=== PATIENT | female | born 1960 | race Caucasian/White ===

== ENCOUNTER 2018-02-15 11:43 | Outpatient (REF) | payer BC, SELFPAY | END 2018-02-15 12:03 | LOC: LBN 11:43 | PROVIDERS: PCP Internal Medicine; Visit Provider Nurse Practitioner Family | DX: N90.9 Noninflammatory disorder of vulva and perineum, unspecified (principal) | CPT/HCPCS: 87529 ==

== ENCOUNTER 2018-11-18 17:16 | Outpatient (REF) | payer BC, SELFPAY ==
--- NOTE | 2018-11-18 15:40 | PAPFT_PTH ---
PATIENT: Debbie Pedraza LOC: [facility] U#:[id number] AGE/SX: 58/F ROOM: RE11/18/[address]: Angelica Yap : 1960 BED: DIS: 11/18/2018 SPEC #: [id number] RECD: 11/18/18 18:00 STATUS: RU REGian #: [id number] SANAZ: 11/18/18 15:[address]: Angelica Yap DEPT: [facility] Cytology RECD BY: [place] Jay ENTERED: 11/18/18 18:00 SP TYPE: PAPFT OTHR DR: Roxana Rodriguez, PhD LEAD ESTHETICIAN Tissues: 1 - CX/ENDOCX FOR PAP SMEARS Procedures: PAP THIN PREP/UVM Screening HPV DNA PROBE Comments: [id number]
== END 2018-11-18 17:36 ==
LOC: LBN 17:16
PROVIDERS: PCP Nurse Practitioner; Visit Provider Obstetrics & Gynecology Gynecology
DX: Z12.4 Encounter for screening for malignant neoplasm of cervix (principal); Z11.51 Encounter for screening for human papillomavirus (HPV)
CPT/HCPCS: 88142; 87624

== ENCOUNTER 2018-12-20 01:04 | Outpatient (CLI) | payer BC, SELFPAY ==
--- NOTE | 2018-12-20 16:06 | DI.MAMMO_ITS ---
EXAM: MAMMO SCREENING CLINICAL HISTORY: screening Z12.39. TECHNIQUE: Mammograms were interpreted according to the usual protocol including computer analysis w ith CAD system, tomosynthesis and C-view imaging. COMPARISON: [id number] FINDINGS: The breasts are composed of scattered areas of fibroglandular density, breast density category B. Th ere are no suspicious masses or microcalcifications. There are no significant changes in comparison w ith the prior images. IMPRESSION: BI-RADS Cat 1 - Negative Breast Density - Category B - Scattered areas of fibroglandular density
== END 2018-12-20 01:24 ==
PROVIDERS: PCP Nurse Practitioner; Visit Provider Obstetrics & Gynecology Gynecology
DX: Z12.31 Encounter for screening mammogram for malignant neoplasm of breast (principal)
CPT/HCPCS: 77063; 77067

== ENCOUNTER 2019-01-31 10:37 | Outpatient (CLI) | payer BC, SELFPAY ==
--- NOTE | 2019-01-31 11:00 | DI.RAD_ITS ---
EXAM: XR WRIST LT COMPLETE INDICATION: left wrist injury,S69.92XA. COMPARISON: No exams were available for comparison TECHNIQUE: 2D digital imaging was performed. FINDINGS: There is a comminuted intra-articular fracture of the distal radius. There is a displaced fracture f ragment posteriorly. There is some impaction. The distal ulna and carpal bones appear intact. IMPRESSION: Comminuted intra-articular fracture of the distal radius.
== END 2019-01-31 10:57 ==
PROVIDERS: PCP Nurse Practitioner; Visit Provider Family Medicine
DX: S69.92XA Unspecified injury of left wrist, hand and finger(s), initial encounter (principal); S52.572A Other intraarticular fracture of lower end of left radius, initial encounter for closed fracture
CPT/HCPCS: 73110

== ENCOUNTER 2019-02-07 15:14 | Outpatient (CLI) | payer BC, SELFPAY ==
--- NOTE | 2019-02-07 15:06 | DI.RAD_ITS ---
EXAM: XR WRIST LT COMPLETE INDICATION: F/U FRACTURE. COMPARISON: XR WRIST LT COMPLETE from 01/31/2019 TECHNIQUE: 2D digital imaging was performed. FINDINGS: There has been no change in the alignment of the distal radial fracture. No new abnormalities are se en.
== END 2019-02-07 15:34 ==
PROVIDERS: PCP Nurse Practitioner; Visit Provider Student in an Organized Health Care Education/Training Program
DX: S52.572D Other intraarticular fracture of lower end of left radius, subsequent encounter for closed fracture with routine healing (principal)
CPT/HCPCS: 73110

== ENCOUNTER 2019-03-03 15:31 | Outpatient (CLI) | payer BC, SELFPAY ==
--- NOTE | 2019-03-03 15:40 | DI.RAD_ITS ---
EXAM: XR WRIST LT COMPLETE CLINICAL HISTORY: L distal radius fx TECHNIQUE: COMPARISON: XR WRIST LT COMPLETE from 02/07/2019 FINDINGS: Three views were obtained and show previously described fracture of the distal radius with no gross i nterval change in alignment of the fracture fragments comparison with previous examination of Prasanth moore. IMPRESSION:
== END 2019-03-03 15:51 ==
PROVIDERS: PCP Nurse Practitioner; Visit Provider Physician Assistant
DX: S52.572D Other intraarticular fracture of lower end of left radius, subsequent encounter for closed fracture with routine healing (principal)
CPT/HCPCS: 73110

== ENCOUNTER 2019-04-04 16:05 | Outpatient (CLI) | payer BC, SELFPAY ==
--- NOTE | 2019-04-04 15:13 | DI.RAD_ITS ---
EXAM: XR WRIST LT LIMITED CLINICAL HISTORY: f/u L wrist frx TECHNIQUE: COMPARISON: XR WRIST LT COMPLETE from 03/03/2019 FINDINGS: Two views were obtained and show previously described fracture of the distal radius with no gross int erval change in alignment of the fracture fragments comparison with previous examination of March 03. IMPRESSION:
== END 2019-04-04 16:25 ==
PROVIDERS: PCP Nurse Practitioner; Visit Provider Student in an Organized Health Care Education/Training Program
DX: S52.572D Other intraarticular fracture of lower end of left radius, subsequent encounter for closed fracture with routine healing (principal)
CPT/HCPCS: 73100

== ENCOUNTER 2019-09-23 03:14 | Outpatient (CLI) | payer BC, SELFPAY ==
[2019-09-23 09:28] LABS: Hemoglobin A1C 5.5 % (3.8-5.6)
[2019-09-23 10:02] LABS: Calculated LDL 91 mg/dL (<100); Cholesterol 161 mg/dL (<200); HDL Cholesterol 45 mg/dL (40-60); Triglyceride 129 mg/dL (<150)
== END 2019-09-23 03:34 ==
PROVIDERS: PCP Nurse Practitioner; Visit Provider Nurse Practitioner
DX: Z13.220 Encounter for screening for lipoid disorders (principal); Z13.1 Encounter for screening for diabetes mellitus
CPT/HCPCS: 36415; 80061; 83036

== ENCOUNTER 2020-01-11 02:42 | Outpatient (CLI) | payer BC, SELFPAY ==
--- NOTE | 2020-01-11 06:30 | DI.US_ITS ---
EXAM: US THYROID CLINICAL HISTORY: enlarged thyroid,nontoxic goiter,e04.9 TECHNIQUE: Ultrasound performed using standard protocol. COMPARISON: No exams were available for comparison FINDINGS: Thyroid ultrasound was performed according to the usual protocol. Right thyroid lobe measures 39 x 1 4 x 12 millimeters and left thyroid lobe measures 32 x 11 x 15 millimeters, the isthmus is about 3 mi llimeters in thickness. Thyroid parenchyma homogeneous. No significant mass identified. 3 millimeter nodule noted in lower pole left thyroid. IMPRESSION: Negative thyroid ultrasound. No imaging follow-up recommended. DATA REPOSITORY:
--- NOTE | 2020-01-11 07:30 | DI.MAMMO_ITS ---
EXAM: MAMMO SCREENING CLINICAL HISTORY: screening,z12.39 TECHNIQUE: Mammograms were interpreted according to the usual protocol including computer analysis w [employer] CAD system, tomosynthesis and C-view imaging. COMPARISON: FINDINGS: The breasts are of moderate density with fairly symmetrical distribution of fibroglandular tissue. N o dominant mass or clumped microcalcification is identified in either breast. Current examination is compared with previous examinations including December 2018 and there has been no gross interval alexandre ge in appearance in comparison with prior studies. IMPRESSION: No specific evidence of malignancy at this time. Routine screening examinations are suggested at yea rly intervals due to the family history of breast carcinoma. BI-RADS Category 1 - Negative Breast Density - Category B - Scattered areas of fibroglandular density
== END 2020-01-11 03:02 ==
PROVIDERS: PCP Nurse Practitioner; Visit Provider Nurse Practitioner
DX: Z12.31 Encounter for screening mammogram for malignant neoplasm of breast (principal); Z80.3 Family history of malignant neoplasm of breast; E04.9 Nontoxic goiter, unspecified
CPT/HCPCS: 77063; 77067; 76536

== ENCOUNTER 2020-06-04 02:10 | Outpatient (CLI) | payer BC, SELFPAY ==
--- NOTE | 2020-06-04 06:31 | DI.US_ITS ---
EXAM: US PELVIS TRANSVAGINAL CLINICAL HISTORY: Left sided abd pain, ? OVARIAN CYST, R10.9 TECHNIQUE: Ultrasound of the pelvis was performed both transabdominal and transvaginal. COMPARISON: US US THYROID from 01/11/2020 FINDINGS: UTERUS: Anteverted Measures 7 point cm length x 3.2 cm AP x 9 cm wide. There are no uterine fibroids. Endometrial thickness measures 6 mm. There is no fluid in the endometrial canal. CERVIX: There are multiple hyperechoic foci in the upper cervix seen on transvaginal imaging, probabl y small calcifications. There are no large nabothian cysts. RIGHT OVARY: Measures 2.7 x 1.6 x 1.4 cm No significant cysts nor masses evident in the right ovary. LEFT OVARY: Measures 4.2 x 3 2 x 2 point cm Left ovary contains a cyst measuring 3.6 x 2.2 x 3.6 cm. This appears unilocular with no septated th erein. Vascular flow is demonstrated in both ovaries. CUL-DE-SAC: No free fluid evident. IMPRESSION: 1. There is a 3.6 by 3.6 x 2.2 centimeter cyst in the left ovary. No other ovarian findings. 2. There are multiple hyperechoic foci in what is either the upper cervix or lower most uterus.. Pos sibly related to tiny nabothian cyst boyd versus is possibility of fibroid at this level. 3. No free fluid evident in the adnexal regions and cul-de-sac. DATA REPOSITORY:
== END 2020-06-04 02:30 ==
PROVIDERS: PCP Nurse Practitioner; Visit Provider Nurse Practitioner Family
DX: N83.292 Other ovarian cyst, left side (principal); N85.8 Other specified noninflammatory disorders of uterus
CPT/HCPCS: 76830; 76856

== ENCOUNTER 2020-11-13 18:37 | Outpatient (REF) | payer BC, SELFPAY ==
[2020-11-15 11:56] LABS: COVID-19 RT-PCR UVMMC Result Negative (Negative)
== END 2020-11-13 18:38 | disposition home or self-care (01) ==
LOC: LBN 18:37
PROVIDERS: PCP Nurse Practitioner; Visit Provider Nurse Practitioner Family
DX: Z20.822 Contact with and (suspected) exposure to COVID-19 (principal); R05 Cough
CPT/HCPCS: U0003

== ENCOUNTER 2021-01-16 01:00 | Outpatient (CLI) | payer BC, SELFPAY ==
--- NOTE | 2021-01-16 07:30 | DI.MAMMO_ITS ---
Exam(s) MAMMO SCREENING EXAM: MAMMO SCREENING CLINICAL HISTORY: screening,Z12.39. TECHNIQUE: Bilateral full field digital CC and MLO mammographic images were obtained with 3D tomosyn thesis and utilizing computer aided detection (CAD). COMPARISON: Prior mammograms dating back to 2013, the most recent being December 2019. FINDINGS: There has been no significant change in the appearance and distribution of fibroglandular tissue smal l nodular density in the upper-outer quadrant left breast is unchanged from prior studies and probabl y benign lymph node. There are no CAD designations There are no new spiculated masses nor malignant appearing microcalcification groups. There is no significant architectural distortion nor skin thickening-retraction. IMPRESSION: No radiographic evidence of malignancy. BI-RADS Category 1 - Negative Breast Density - Category B - Scattered areas of fibroglandular density Breast density Category C or D implies that the patient has dense breast tissue. Dense breast tissue can make it harder to find cancer on a mammogram. Dense breast tissue is also associated with an incr eased risk of breast cancer. This information about the result of the mammogram report was provided to the patient to raise their awareness. Use this report when you speak with the patient about their risks for breast cancer, which includes their family history. At that time, you may recommend additional screening tests (Ultrasoun d or MRI) as these tests may add significant information. A negative radiographic report should not delay biopsy if a dominant or clinically suspicious mass is present. Up to ten percent of cancers are not identified on mammography. A negative report may reinforce clinical impression. Adenosis and dense breasts may obscure an underlying neoplasm. False positive reports average 6 to 10%. Patient will receive a letter notifying them of these results.
== END 2021-01-16 01:20 ==
PROVIDERS: PCP Nurse Practitioner; Visit Provider Nurse Practitioner
DX: Z12.31 Encounter for screening mammogram for malignant neoplasm of breast (principal)
CPT/HCPCS: 77063; 77067

== ENCOUNTER 2021-05-20 16:01 | Outpatient (REF) | payer BC, SELFPAY ==
--- NOTE | 2021-05-20 15:45 | PAPFT_PTH ---
PATIENT: Debbie Pedraza LOC: [facility] U#:[id number] AGE/SX: 61/F ROOM: RE05/20/[address]: Angelica Yap : 1960 BED: DIS: 05/20/2021 SPEC #: [id number] RECD: 05/20/21 17:45 STATUS: RU REGian #: [id number] SANAZ: 05/20/21 15:[address]: Angelica Yap DEPT: [facility] Cytology RECD BY: Argentina Jay ENTERED: 05/20/21 17:46 SP TYPE: PAPFT OTHR DR: Roxana Rodriguez, PhD [place] ATTENDANT Tissues: 1 - CX/ENDOCX FOR PAP SMEARS Procedures: PAP THIN PREP/UVM Screening HPV DNA PROBE Comments: [id number]
== END 2021-05-20 16:02 | disposition home or self-care (01) ==
LOC: LBN 16:01
PROVIDERS: PCP Nurse Practitioner; Visit Provider Obstetrics & Gynecology Gynecology
DX: Z12.4 Encounter for screening for malignant neoplasm of cervix (principal); Z11.51 Encounter for screening for human papillomavirus (HPV)
CPT/HCPCS: 88142; 87624

== ENCOUNTER 2021-07-30 02:23 | Outpatient (CLI) | payer BC, SELFPAY ==
[2021-07-30 16:40] LABS: HCT 42.5 % (36.0-46.0); HGB 14.5 g/dL (11.2-15.7); MCH 33.3 pg (27.0-33.0); MCHC 34.1 % (32.0-36.0); MCV 98 fL (80-95); MPV 8.6 fL (8.0-11.0); Platelet Count 202 10^3/uL (130-400); RBC 4.35 10^6/uL (3.93-5.22); RDW 11.6 % (11.7-14.6); WBC 7.55 10^3/uL (4.4-10.8)
[2021-07-30 18:35] LABS: TSH (W/Ref FT4) 3.76 uIU/mL (0.36-3.74)
[2021-07-30 19:01] LABS: FREE T4 0.81 ng/dL (0.76-1.46)
== END 2021-07-30 02:24 | disposition home or self-care (01) ==
LOC: LBO 02:23
PROVIDERS: PCP Nurse Practitioner; Visit Provider Nurse Practitioner
DX: E04.9 Nontoxic goiter, unspecified (principal); R53.83 Other fatigue
CPT/HCPCS: 36415; 85027; 84439; 84443

== ENCOUNTER → 2021-10-10 01:52 | Outpatient (CLI) | payer BC, SELFPAY ==
--- NOTE | 2021-10-10 09:57 | DI.RAD_ITS ---
Exam(s) XR HIP PELVIS ADULT BL EXAM: XR HIP PELVIS ADULT BL CLINICAL HISTORY: worsening hip back pain, LUMBAGO, KENNA HIP PAIN, M54.50, M25.551, M25.552. TECHNIQUE: 2D digital imaging was performed of the pelvis and bilateral hips. Three images were obt ained. AP pelvis and lateral views of both hips were obtained. COMPARISON: No exams were available for comparison FINDINGS: BONES: No acute fracture is present. No bony destructive lesion is seen. JOINTS: No dislocation present. SOFT TISSUE: Normal. IMPRESSION: Unrmarkable radiographs of bilat hips. Unremarkable radiographs of the pelvis DATA REPOSITORY: RADIATION DOSE DELIVERED:
== END ==
PROVIDERS: PCP Nurse Practitioner; Visit Provider Nurse Practitioner
DX: M25.551 Pain in right hip (principal); M25.552 Pain in left hip; M54.50 Low back pain, unspecified
CPT/HCPCS: 73521

== ENCOUNTER 2022-01-22 03:37 | Outpatient (CLI) | payer BC, SELFPAY ==
[2022-01-22 15:27] LABS: HCT 41.7 % (36.0-46.0); HGB 14.2 g/dL (11.2-15.7); MCH 33.1 pg (27.0-33.0); MCHC 34.1 % (32.0-36.0); MCV 97 fL (80-95); MPV 8.5 fL (8.0-11.0); Platelet Count 199 10^3/uL (130-400); RBC 4.29 10^6/uL (3.93-5.22); RDW 11.4 % (11.7-14.6); RDW-SD 41.1 fL; WBC 7.43 10^3/uL (4.4-10.8)
[2022-01-22 15:30] LABS: ESR 5 mm/hr (0-30)
[2022-01-22 16:16] LABS: Anion Gap 5.9 mmol/L (3-11); BUN 16 mg/dL (7-18); CO2 33.1 mmol/L (21.0-32.0); CREATININE 0.8 mg/dL (0.55-1.02); Calcium 9.3 mg/dL (8.5-10.1); Chloride 105 mmol/L (98-107); Estimated GFR 84.82 (mL/min/1.73m2); FREE T4 0.87 ng/dL (0.76-1.46); Glucose 91 mg/dL (74-106); Potassium 3.9 mmol/L (3.5-5.1); Sodium 144 mmol/L (136-145)
[2022-01-22 16:38] LABS: Calculated LDL 98 mg/dL (<100); Cholesterol 173 mg/dL (<200); HDL Cholesterol 51 mg/dL (40-60); Triglyceride 121 mg/dL (<150)
[2022-01-22 17:04] LABS: Folate 16.1 ng/mL (8.6-20.0); Vitamin B12 430 pg/mL (193-986)
[2022-01-23 08:57] LABS: Cyclic Citrullinated Peptide <2.5 U/mL (<5.0)
[2022-01-23 14:01] LABS: ANA Interpretation Negative (Negative)
== END 2022-01-22 03:38 | disposition home or self-care (01) ==
LOC: LBO 03:37
PROVIDERS: PCP Nurse Practitioner Family; Visit Provider Nurse Practitioner Family
DX: I10 Essential (primary) hypertension (principal); E04.9 Nontoxic goiter, unspecified; M25.50 Pain in unspecified joint; R53.83 Other fatigue; D75.89 Other specified diseases of blood and blood-forming organs
CPT/HCPCS: 36415; 80048; 80061; 85027; 85652; 86200; 82607; 82746; 84439; 84443; 86038; 86140

== ENCOUNTER → 2022-02-07 00:11 | Outpatient (CLI) | payer BC, SELFPAY ==
--- OUTSIDE RECORDS SUMMARY | 2022-02-07 00:12 | XMS_ITS | Encounter Summary ---
:1960 Author Organization [facility] [place] [address] Care Team Providers Name Role Phone Jose David Gonsales MD Primary Care Provider Encounter Details Date Type Department Care Team Description 09/18/2015 Telephone Sleep Center at [facility] Linda Jansen MD [address] [facility] [place] [address] [facility] [phone] [place] [id number] (Wo rk) Social History Tobacco Use Types Packs/Day Years Used Date Smoking Tobacco: Never Assessed Sex Assigned at Date Recorded Not on file documented as of this encounter Miscellaneous Notes Telephone Encounter - Krystyna Vences - 09/20/2015 10:59 AM EDT . documented in this encounter Plan of Treatment Not on filedocumented as of this encounter Visit Diagnoses Not on filedocumented in this encounter Care Teams Trailers [employer] Salesperson Relationship Specialty Start Date End Date Jose David Gonsales MD PCP - General General Internal Medicine 04/23/15 [address] [place] [address] documented as of this encounter
--- OUTSIDE RECORDS SUMMARY | 2022-02-07 00:12 | XMS_ITS | Encounter Summary ---
:1960 Author Organization [place] [address] Care Team Providers Name Role Phone Jose David Gonsales MD Primary Care Provider Encounter Details Date Type Department Care Team Description 09/18/2015 Telephone Sleep Center at [facility] Linda Jansen MD [address] [facility] [place] [address] [facility] [phone] [place] [address] (Wo rk) Social History Tobacco Use Types Packs/Day Years Used Date Smoking Tobacco: Never Assessed Sex Assigned at Date Recorded Not on file documented as of this encounter Miscellaneous Notes Telephone Encounter - Krystyna Vences - 09/20/2015 11:00 AM EDT . documented in this encounter Plan of Treatment Not on filedocumented as of this encounter Visit Diagnoses Not on filedocumented in this encounter Care Teams Inhalation Therapy Teacher Relationship Specialty Start Date End Date Jose David Gonsales MD PCP - General General Internal Medicine 04/23/15 [address] [place] [address] documented as of this encounter
--- OUTSIDE RECORDS SUMMARY | 2022-02-07 00:12 | XMS_ITS | Encounter Summary ---
:1960 Author Organization [facility] [place] [address] Care Team Providers Name Role Phone Jose David Gonsales MD Primary Care Provider Encounter Details Date Type Department Care Team Description 11/26/2015 Notes Only Sleep Center at [facility] Babar Steven [address] [place] [address] Social History Tobacco Use Types Packs/Day Years Used Date Smoking Tobacco: Never Assessed Sex Assigned at Date Recorded Not on file documented as of this encounter Progress Notes Babar Steven - 11/26/2015 11:15 AM EDT Called patient and left voicemail. Due for a follow up appt with NOREEN in december documented in this encounter Plan of Treatment Not on filedocumented as of this encounter Visit Diagnoses Not on filedocumented in this encounter Care Teams Community Outreach Manager Relationship Specialty Start Date End Date Jose David Gonsales MD PCP - General General Internal Medicine 04/23/15 [address] [place] [address] documented as of this encounter
--- OUTSIDE RECORDS SUMMARY | 2022-02-07 00:12 | XMS_ITS | Encounter Summary ---
:1960 Author Organization [facility] [place] [address] Care Team Providers Name Role Phone Jose David Gonsales MD Primary Care Provider Encounter Details Date Type Department Care Team Description 08/28/2015 Office Visit Dermatology at [facility] ([place], [place]) Rohit Garrett MD Lichen simplex [address] Sergey [address] [place] [address] [place] [address] [phone] (Wo rk) Social History Tobacco Use Types Packs/Day Years Used Date Smoking Tobacco: Never Assessed Sex Assigned at Date Recorded Not on file documented as of this encounter Progress Notes Rohit Garrett MD - 08/28/2015 1:16 PM EDT Problem: Itchy rash, left posterior calf, left ankle. Debbie is a 55-year-old woman who last summer had what she thought was a bite on the back of her calf, and she developed an itchy rash there. She was seen by Dr. Gonsales who gave her fluocinonide cream. This seemed to help that site, but then the patient also noted that she had an itchy rash on her left dorsal foot. Her mother has a history of lupus and scleroderma, and the patient wanted to be seen by a carbon capture power plant operator to be sure that she was not developing that same problem. The fluocinonide, which has worked well for the posterior calf side on the left, did not really do much for the dorsum of the foot, and so she presents today for my evaluation. The patient is seen in consultation for Jose David Gonsales. Physical examination reveals eczematized lichenoid patches on the dorsum of the foot, really now cleared from the left posterior calf. It is consistent with lichen simplex. There is evidence of recent excoriation here. Assessment and Plan: Lichen simplex. a. Recommend that we begin clobetasol ointment, applying on a b.i.d. basis to affected areas; 15 grams dispensed with one refill. b. After evening application, wrap with saran wrap to aid in absorption. c. Continue until rash clears, and then discontinue. e. Patient reassured this is not consistent with lupus nor with scleroderma. It is not consistent with skin cancer. Expect resolution with clobetasol. Return to clinic here p.r.n. COPY: Jose David Gonsales M.D. documented in this encounter Plan of Treatment Not on filedocumented as of this encounter Visit Diagnoses Diagnosis Lichen simplex Lichenification and lichen simplex chron icus documented in this encounter Care Teams Marketing Development Representative Relationship Specialty Start Date End Date Jose David Gonsales MD PCP - General General Internal Medicine 04/23/15 [address] [place] [address] documented as of this encounter
--- OUTSIDE RECORDS SUMMARY | 2022-02-07 00:12 | XMS_ITS | Encounter Summary ---
:1960 Author Organization [facility] [place] [address] Care Team Providers Name Role Phone Shaina Jordan MD Primary Care Provider Reason for Referral Consultation (Routine) - Closed Specialty Diagnoses / Procedures Referred By Contact Refer red To Contact Sleep Center Diagnoses CAS (obstructive sleep apnea) Linda Jansen MD [facility] Sleep Medicine [facility] [address] [place] [address] [place] [address] Referral ID Status Reason Start Date Expiration Date Visits V isits Requested Authorized [id number] Closed Test Only 09/04/2015 09/03/2016 1 1 Encounter Details Date Type Department Care Team Description 09/04/2015 Office Visit Sleep Center at Linda Jansen MD CAS (obstructive [address] [facility] sleep apnea) [address] [place], [place] SLEEP [facility]ORDERS [address] CENTER [phone] [place], [place] [address] (Wo rk) Social History Tobacco Use Types Packs/Day Years Used Date Smoking Tobacco: Never Assessed Sex Assigned at Date Recorded Not on file documented as of this encounter Last Filed Vital Signs Vital Sign Reading Time Taken Comments Blood Pressure 140/90 09/04/2015 12:48 PM EDT Pulse 82 09/04/2015 12:48 PM EDT Temperature - - Respiratory Rate - - Oxygen Saturation 98% 09/04/2015 12:48 PM EDT Inhaled Oxygen Concentration - - Weight 77.9 kg (171 lb 11.2 oz) 09/04/2015 12:48 PM EDT Height 167.6 cm (5' 6) 09/04/2015 12:48 PM EDT Body Mass Index 27.71 09/04/2015 12:48 PM EDT documented in this encounter Progress Notes Linda Jansen MD - 09/04/2015 12:39 PM EDT Sleep Medicine Consultation Note HPI: Ms. Debbie Pedraza is a 55 y.o. female seen at the request of SHAINA JORDAN MD for advice regarding suspected obstructive sleep apnea. She previously underwent testing at [facility] in 1999. Diagnosis of mild sleep apnea, ordered oral mandibular advancement device - was hard to clean, not clear benefit. used to note apneas, but now not as often. However, snoring is definitely consistent and worse than previously. Last year, spent the night with a colleague and they couldn't sleep at all. also is a light sleeper and needs to leave the room. In addition, sleep is not good quality - tired every day. Just recently started drinking coffee again. Sleep Apnea Risk: Snoring: yes Severity: can be loud, typically more moderate Frequency: nightly Duration: 20 + years Over time: getting worse Modifying factors: tried various things - not obvious benefit Observed Apneas: yes, more apparent in the past Mouth Breathing: yes Dry Mouth: yes Nocturnal Gasping: yes Nasal Obstruction: yes Weight: gaining (lost 10 lbs over winter and gained it bck) Sleep Pattern: Location: bedroom Bed/Recliner/Wedge: bed # of pillows under head: 1 or none, Position: sleeps on stomach usually, but may end up in other positions as per her Bedtime: 10:30 - 11, tends to go to bed late, falls asleep instantly Awakenings: she is not aware Out of bed at 6:15 am Daytime Symptoms: [place]: 724 Upon Awakening: tired Daytime fatigue/sleepiness: usually can keep busy, but feels tired Naps: if can get home right after school, will nap Involuntary Dozing: maybe watching TV, rare Cognitive Symptoms: sometimes Driving: only if late at night, but generally doesn't do Close calls related to sleepiness: no Accidents related to sleepiness: no Sleep Review of Symptoms Parasomnias: Sleep Walking: no Dream Enactment: no Bruxism: not aware Motor: RLS: no PLMS: not asked Narcolepsy: Hallucinations: no Paralysis: no Cataplexy: not asked ROS: CON: weight change: see HPI ENT: nasal obstruction: see HPI NEURO: sleep related headaches: no CV: chest pain: no Palpitations: yes LE edema: yes PUL: TORRES: somewhat PSY: Depression: no Anxiety: yes, sometimes GI: GERD: no : Nocturia: not daily MSK: Pain: periodic back pain ALL: Environmental Allergies: maybe Past/Childhood Sleep History: snored for many years Family History: Family history of sleep disorders: Dad snored very loudly, uncle with CAS was on CPAP Outpatient Prescriptions Marked as Taking for the 09/04/15 encounter (Office Visit) with Bonnie Jansen MD Medication Sig Dispense Refill ??? clobetasol (TEMOVATE) 0.05 % Ointment Apply topically 2 times daily. ??? multivitamin with minerals and lutein Tablet Take by mouth daily. ??? magnesium citrate Solution Take by mouth. ??? ascorbic acid, vitamin C, (VITAMIN C) 500 mg Tablet, Chewable Take by mouth. ??? fish oil-omega-3 fatty acids 1,000 mg Capsule Take 2 g by mouth daily. Keeps Past Medical History: Borderline hypertension, not taking any meds yet Essential tremor Eczema Sacroilliac dysfunction Past Surgical History: no Patient Active Problem List Diagnosis Code ??? 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 Alcohol: 3 x a week, maybe a bit more on weekend Smoking: no, quit at age 32 Caffeine: coffee 1-2 cups Family: lives with , son 18 yr MSE: Alert and appropriate: yes PE: BP 140/90 Pulse 82 Ht 167.6 cm (5' 6) Wt 77.9 kg (171 lb 11.2 oz) SpO2 98% BMI 27.71 kg/m2 General: alert, pleasant, no distress Eyes: Conjunctivae: clear EOM: full ENT: MP: 4 Facial deformity: no Hard palate: normal Soft palate: normal Gums and teeth: good condition Tongue: large for space with scalloped edges Pul: Respirations: NAD Auscultation: clear Neck/Lymphatics: Circumference: 14.5 (normal) Cardiac: HS: RRR Neuro: alert, normal speech Musculoskeletal: Gait and stance: normal Assessment: Ms. Debbie Pedraza is a 55 y.o. female who is seen to evaluate for possible obstructive sleep apnea. She carries a diagnosis of mild CAS from 16 yrs ago, but since that time her symptoms have progressed. She has worse snoring, poor quality sleep with daytime symptoms, and elevated BP. The pathophysiology of, the reasons to treat and treatment options for obstructive sleep apnea were allreviewed with the patient today. She is agreeable to proceed to testing. She currently is off gridand we discussed some of the aspects of power for CPAP. Ultimately, discussion with a home care company may be needed to help flush out those issues. Time spent face to face: 50 min Time spent devoted to counseling and discussion: 25 min Recommendations: 1) Polysomnography 2) Driving safety was reviewed with patient. If the patient feels too sleepy to drive he/she knows not to drive. If he/she becomes sleepy while driving he/she will machine tack puller and nap. The patient indicates understanding of these issues and agrees with the plan. Linda Jansen MD Patient confirms that study results can be called to [phone] and a detailed phone message left if not available to answer. documented in this encounter Plan of Treatment Scheduled Referrals Name Type Priority Associated Diagnoses Order S chedule Referral to Sleep Outpatient Referral Routine CAS (obstructive Ordered: [facility] Center sleep apnea) 09/04/2015 documented as of this encounter Visit Diagnoses Diagnosis CAS (obstructive sleep apnea) Obstructive sleep apnea (adult) (pediatr ic) documented in this encounter Care Teams Telephone Ad Taker Relationship Specialty Start Date End Date Shaina Jordan MD PCP - General General Internal Medicine 04/23/15 [address] [place] [address] documented as of this encounter
--- OUTSIDE RECORDS SUMMARY | 2022-02-07 00:12 | XMS_ITS | Encounter Summary ---
:1960 Author Organization [facility] [place] [address] Care Team Providers Name Role Phone Jose David Gonsales MD Primary Care Provider Encounter Details Date Type Department Care Team Description 09/25/2015 Procedure visit Sleep Center at Linda Jansen MD CAS ([facility] sleep apnea) [address] [place] SLEEP DISORDERS [id number] CENTER [phone] [place], [place] [address] Social History Tobacco Use Types Packs/Day Years Used Date Smoking Tobacco: Never Assessed Sex Assigned at Date Recorded Not on file documented as of this encounter Progress Notes Linda Jnasen MD - 09/25/2015 7:30 PM EDT Images from the original note were not included. Overnight Polysomnogram Report History Of Present Illness: Debbie Pedraza is a 55 yo female who presents for overnight testing due to suspicion of CAS. 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 Polysomnography: The patient's sleep was evaluated for one night at [facility]. Sleep was monitored in accordance with recommended AASM guidelines. The recording also included oral/nasal airflow, chest and abdominal respiratory effort, nasal pressure, single channel EKG, intercostal EMG, bilateral tibialis EMG, and oxygen saturation (by pulse oximeter). Report - Sleep/EEG: Baseline respiratory monitoring was performed from 21:57 to 6:18 yielding a total sleeptime of 425 min with a sleep onset latency of 14.5 min with a sleep efficiency of 85%. All stages ofsleep were seen with REM accounting for 25% of TST. - Respiratory: Obstructive sleep apnea of a mild to moderate degree with well maintained oxygen saturations of 91 % or above. The overall AHI was 19/hr with a CMS AHI of 0.8/hr.Visual to loud snoring was observed. - EKG: Normal sinus rhythm. - EMG: Unremarkable. - COMMENTS: Head of bed: flat with 2 pillows Post study questionnaire: The patient reported sleeping average and feeling average on the morning after testing. Technical quality of the study: good Assessment: Debbie Pedraza is a 55 you female who presents for overnight testing which demonstrates evidence moderate CAS with associated intermittent loud snoring. Given the findings and her reported symptoms, treatment is recommended. Treatment options include CPAP therapy, an oral appliance or pancho gical options (least favored.) CPAP is the recommended first line treatment strategy and if she is agreeable, than a CPAP titration is recommended. I spoke to Debbie - she reports understanding and is willing to proceed with CPAP testing. Recommendations: CPAP titration Linda Jansen MD [facility] REPORT of Diagnostic Polysomnography Patient Name: Debbie Pedraza Study Date: 09/25/2015 Age & Sex: 55 y.o. Female Height: 5'6 Date of : 1960 Weight: 169 lbs BMI: 27.3 Referring Provider: Recording Technologist: DEBBIE MONTANEZ Scoring Technologist: SHANIKA ZAVALA Sleep Fellow: Sleep Specialist: Scoring Technologist Comments: ECG: NSR Ectopy: Description of Study: Diagnostic polysomnography was performed utilizing frontal, central & occipital EEG, EOG, submentalis EMG, oronasal thermocouple, nasal pressure, ECG, thoracic and abdominal inductance plethysmography, right and left anterior tibialis EMG, snore sensor, and pulse oximetry according to AASM established guidelines. Study Details & Sleep Architecture Diagnostic Start Time (Lights Off): 21:57:24 Total Recording Time: 501.0 min Diagnostic End Time (Lights On): 06:18:25 Total Sleep Time (minutes): 425.0 Total Num. of Stage Shifts: 113 Total Sleep Time (hrs:min): 7:5.0 Total Num. of Awakenings: 37 Sleep Onset Latency: 14.5 min Total Num. of Trans. to N1: 14 Sleep Efficiency: 84.8% Total Num. of REM Periods: 5 Stage Results: Time (minutes) %TST Latency (minutes) WASO: 61.5 - - N1: 12.0 2.8 0.0 N2: 218.5 51.4 4.0 N3: 87.5 20.6 17.0 REM: 107.0 25.2 99.5 90.0 (minus wake) Arousal Counts: NREM REM Total Spontaneous: 94 (17.7/hr) 26 (14.6/hr) 120 (16.9/hr) Sum of All Arousals: 166 (31.3/hr) 50 (28.0/hr) 216 (30.5/hr) Spontaneous arousals include only EEG arousals not associated with a respiratory event or PLM. Body Position: Supine Non-Supine Non-REM: 105.5 min 212.5 min REM: 35.5 min 71.5 min Total Sleep: 141.0 min (33.2%) 284.0 min (66.8%) Respiratory Events Apneas Obstructive Mixed Central Total Apneas Total Count: 0 0 1 1 Mean Duration (sec): 0 0 18 - Longest Duration (sec): 0 0 18.3 - Index (REM/NREM): 0.0 / 0.0 0.0 / 0.0 0.0 / 0.2 - Index (Sup./Non-Sup.): 0.0 / 0.0 0.0 / 0.0 0.4 / 0.0 - Index (Total): 0.0 0.0 0.1 0.1 Hypopneas & RERAs Hypopnea Definitions: Hypopnea* CMS Hypopnea 3% desat mitch. Hypopneas All RERA Total Count: 5 126 131 0 Mean Duration (sec): 35.2 28.4 - 0 Longest Duration (sec): 45.4 76.8 - 0 Index (REM/NREM): 2.2 / 0.2 17.9 / 17.7 20.1 / 17.9 0.0 / 0.0 Index (Sup./Non-Sup.): 0.9 / 0.6 16.6 / 18.4 17.5 / 19.0 0.0 / 0.0 Index (Total): 0.7 17.8 18.5 0.0 *[facility]-defined hypopneas include only hypopneas with a >=4% oxygen desaturation. Includes hypopneas with an arousal or with a 3%-4% desaturation. [facility] Hypopneas not included. Periodic Breathing Total Sleep Time Time (minutes) 0.0 Time (%Sleep Time) 0.0 AHI: Includes all apneas & all hypopneas associated with an arousal or a ? 3% desaturation. Supine Non-Sup. REM NREM Total Count: 42 90 36 96 132 Index (events/hr): 17.9 19.0 20.2 18.1 AHI = 18.6 CMS AHI: Includes all apneas & only hypopneas associated with a ? 4% desaturation. Supine Non-Sup. REM NREM Total Count: 3 3 4 2 6 Index (events/hr): 1.3 0.6 2.2 0.4 CMS = 0.8 Obstructive AHI: Includes obstructive & mixed apneas as well as all hypopneas. Excludes central apneas and RERAs. Supine Non-Sup. REM NREM Total Count: 41 90 36 95 131 Index (events/hr): 17.4 19.0 20.2 17.9 OAHI = 18.5 RDI: Includes all apneas, all hypopneas, all RERAs, and all ???Unsure??? events. Supine Non-Sup. REM NREM Total Count: 42 90 36.0 95.9 132 Index (events/hr): 17.9 19.0 20.2 18.1 RDI = 18.6 Oxygen Saturation Details SpO2 Awake NREM REM All Sleep MATILDE Report Sleep Mean: 96% 96% 96% 96% 3% MATILDE 3.2 2.8 Minimum: - 91% 91% 91% 4% MATILDE 0.8 0.7 SpO2 Awake (minutes) NREM (minutes) REM (minutes) All Sleep (minutes) ?90% 0.0 0.0 0.0 0.0 ?89% 0.0 0.0 0.0 0.0 ?88% 0.0 0.0 0.0 0.0 90-99% 72.1 313.8 107.0 420.8 80-89.9% 0.0 0.0 0.0 0.0 79-79.9% 0.0 0.0 0.0 0.0 60-69.9% 0.0 0.0 0.0 0.0 50-59.9% 0.0 0.0 0.0 0.0 ?50% 0.0 0.0 0.0 0.0 Cardiac Details Heart Rate (bpm) Total Study NREM REM All Sleep Minimum - 62 62 62 Maximum 88 88 88 88 Mean - 73 71 72 Limb Movement Details Periodic Limb Movements Total PLMs (and Index) PLMs w/ Arousals (and Index) Wake (after ???Lights Off???): 0 (0.0/hr) 0 (0.0/hr) NREM: 0 (0.0/hr) 0 (0.0/hr) REM: 0 (0.0/hr) 0 (0.0/hr) Total Sleep: 0 (0.0/hr) 0 (0.0/hr) Graphs PLMs Body Position Supplemental Oxygen documented in this encounter Plan of Treatment Not on filedocumented as of this encounter Visit Diagnoses Diagnosis CAS (obstructive sleep apnea) Obstructive sleep apnea (adult) (pediatr ic) documented in this encounter Care Teams Sedimentationist Relationship Specialty Start Date End Date Jose David Gonsales MD PCP - General General Internal Medicine 04/23/15 [address] [place] [address] documented as of this encounter
--- OUTSIDE RECORDS SUMMARY | 2022-02-07 00:12 | XMS_ITS | Encounter Summary ---
:1960 Author Organization [facility] Address [address] [place] [address] Care Team Providers Name Role Phone Shirin Menard MD Primary Care Provider Reason for Visit Reason Comments Obstructive Sleep Apnea Encounter Details Date Type Department Care Team Description 05/12/2016 Office Visit Sleep Center at [facility] Chito Jurado CRTT CAS on CPAP [facility] [address] [place] [address] Social History Tobacco Use Types Packs/Day Years Used Date Smoking Tobacco: Never Assessed Sex Assigned at Date Recorded Not on file documented as of this encounter Progress Notes Jolene Jurado CRTT - 05/12/2016 1:00 PM EST Sleep Medicine Clinical Health Specialist Brief Follow-Up Note HPI: Ms. Debbie Pedraza is a 56 y.o. female seen for follow-up of obstructive sleep apnea. Patientpresents today for follow-up in PAP clinic: Sleep Study: PSG 09/25/15 Obstructive sleep apnea of a mild to moderate degree with well maintained oxygen saturations of 91 %or above. The overall AHI was 19/hr with a CMS AHI of 0.8/hr.Visual to loud snoring was observed. Weight: 169lbs ?? Titration 10/24/15, Wt: 171lbs AUTO CPAP 7 - 14 with a Dreamwear nasal mask or mask of her preference. ?? Treatment: CPAP Device: DreamStation Auto CPAP Pressure: 7-16cw Pressure Intolerance: ok Interface/Mask: Has DreamWear nasal mask Difficulty tolerating mask interface: none Chin Strap: no Humidity on? (ask if ResMed device): she thinks so HCC: [facility], [place], [place] Insurance: [place] ? Snoring: has told her no Dry Mouth/Throat: Yes, using biotene spray ?? Symptoms Improved: [place]: 10 (11 previous) Nocturnal sleep quality improved: better Daytime symptoms improved: no change Naps: once/week in the afternoon for 20 min Involuntary Dozing: rarely Sleepiness or Drowsiness when driving: no ?? Sleep Pattern: Bedtime: 10:30-11p, falls asleep quickly Rise time: 6:15am Awakenings: may once/night ? ROS: Constitutional: Weight change: Reports stable ENT: Nasal Obstruction: Some sneezing (She does not use heated humidity at this time-cool passover) ?? Card Data Download: Date Range: 11/06/15-02/03/16 (she didn't pick it up until November 08) Pressure: 7-14cw 90% 12.3 Avg 9.8 Residual AHI: 4.5 Avg Vibratory Snore Index: 3.1 Avg % Night in Large Leak: 0.2% Average Usage (Days Used/Hours): 7 hrs 17 mins # Days of usage: 85/90 % Days used > 4 hours: 7 hours 17 mins ? Compliance Card Data: Date Range: 02/11-05/11/16 Sett[place]-16 cm 90% 12 cm/average 9.5 cm Residual AHI: 3.6 Vibratory Snore Index: 3 % Night in Large Leak: 0 Average usage all days-Hours: 6 hr 42 min # Days of usage: 85/90 % Days used > 4 hours 90% Total % Days used 94.4% Physical Exam: Respirations: Even and not labored at rest DERM: Skin irritation: no There were no vitals filed for this visit. Assessment Debbie Pedraza is a 56 y.o. female seen for obstructive sleep. The data download reveals the AHI, VSI and leak appear to be adequately controlled. There is a low volume leak at times that appears to be some mouth breathing. Patient uses a nasal mask w/o a chin strap and keeps her HH on off-uses it as a cool passover. We discussed trying a chin strap and reviewed symptoms of dry mouth andnose w/o hh. Otherwise she is doing very well and reports continued modest benefit with her rest andenergy. EDS symptoms have not been a problem for her to begin with. RTC in one year with Lucy Time spent face to face: 30 Min. Recomendations: 1) CPAP 7-16 cm with ramp and Heated Humidity 2) Follow-up: RTC one year with Lucy 3) Driving safety discussed, recommend patient not drive if drowsy, if drowsy while driving to assembler for puller over machine and take a nap. The patient indicates understanding of these issues and agrees with the plan. Linda Jansen MD - 05/12/2016 1:00 PM EST I have reviewed Tuyet Jurado CRT's note for Ms. Debbie Pedraza and agree with the assessment and recommendations. LINDA JANSEN MD Linda Jansen MD - 05/12/2016 1:00 PM EST I have reviewed Tuyet Jurado SUPER[employer]OR [employer]'s note for Ms. Debbie Pedraza and agree with the assessment and recommendations. LINDA JANSEN MD documented in this encounter Plan of Treatment Not on filedocumented as of this encounter Visit Diagnoses Diagnosis CAS on CPAP Obstructive sleep apnea (adult) (pediatr ic) documented in this encounter Care Teams Rubber Mold Maker Relationship Specialty Start Date End Date Shirin Menard MD PCP - General Oncology 02/04/[address] [place] [id number] documented as of this encounter
--- OUTSIDE RECORDS SUMMARY | 2022-02-07 00:12 | XMS_ITS | Encounter Summary ---
:1960 Author Organization [facility] [place] [address] Care Team Providers Name Role Phone Jose David Gonsales MD Primary Care Provider Reason for Referral Consultation (Routine) - Closed Specialty Diagnoses / Procedures Referred By Contact Refer red To Contact Sleep Center Diagnoses CAS (obstructive sleep apnea) Linda Jansen MD [facility] Sleep Medicine Procedures PRG POLYLSOM 6+ YRS SLEEP W CPAP W 4+ ADDL RODRIGO ATT[facility] [address] [place] [address] [place] [address] Referral ID Status Reason Start Date Expiration Date Visits V isits Requested Authorized [id number] Closed Test Only 10/05/2015 10/04/2016 1 1 Encounter Details Date Type Department Care Team Description 10/05/2015 Orders Only Sleep Center at Linda Jansen MD CAS (obstructive [address] [facility] sleep apnea) (Primary [address]) [place], [place] SLEEP DISORDERS [address] CENTER [phone] [place], [place] [address] (Wo rk) Social History Tobacco Use Types Packs/Day Years Used Date Smoking Tobacco: Never Assessed Sex Assigned at Date Recorded Not on file documented as of this encounter Progress Notes Linda Jansen MD - 10/05/2015 6:00 PM EDT Polysomnogram Order Form Room # Technologist Assignment: To be read by on PSG Patient Information Date of study: : 1960 Name: Debbie Pedraza Height: 66 Weight: 171 lbs 55 y.o. female Normal sleep hours: *10:30-6 Arrival Time: Physical/Mobility Limitations: No Cognitive Limitations: No Requires Male Tech: No Requires Female Tech: No Requires 1:1 Care: No Requires Parent/Caregiver: Russell of Parent/Caregiver staying: Using Home Oxygen: No At home sleeps in: Bed PSG Indications: CAS Other Medical Conditions: borderline htn, essential tremor PSG Orders Type of study: CPAP titration Additional data required: no May need to sleep on stomach for parts of night *Initiate CPAP/BPAP/oxygen per previously determined protocols unless otherwise specified. documented in this encounter Plan of Treatment Scheduled Referrals Name Type Priority Associated Diagnoses Order S chedule Referral to Sleep Outpatient Referral Routine CAS (obstructive Ordered: Disorders Center sleep apnea) 10/05/2015 documented as of this encounter Visit Diagnoses Diagnosis CAS (obstructive sleep apnea) - Primary Obstructive sleep apnea (adult) (pediatr ic) documented in this encounter Care Teams Molder Foam Rubber Relationship Specialty Start Date End Date Jose David Gonsales MD PCP - General General Internal Medicine 04/23/15 [address] [place] [address] documented as of this encounter
--- OUTSIDE RECORDS SUMMARY | 2022-02-07 00:12 | XMS_ITS | Clinical Summary ---
:1960 Author Organization [facility] Address [place] [id number] Care Team Providers Name Role Phone Shirin Menard MD Primary Care Provider Allergies Active Allergy Reactions Severity Noted Date Comments Penicillins 08/28/2015 Medications Medication Sig Dispensed Refills Start Date End Date Status clobetasol (TEMOVATE) Apply topically 2 0 Active 0.05 % Ointment times daily. multivitamin with Take by mouth 0 Active minerals and lutein daily. Tablet magnesium citrate Take by mouth. 0 Active Solution ascorbic acid, vitamin Take by mouth. 0 Active C, (VITAMIN C) 500 mg Tablet, Chewable fish oil-omega-3 fatty Take 2 g by mouth 0 Active acids 1,000 mg Capsule daily. cholecalciferol, Take by mouth. 0 Active Vitamin D3, (CHOLECALCIFEROL, VITAMIN D3,) 2,000 unit Capsule meTOPROLOL succinate Take 25 mg by 0 Active (TOPROL-XL) 25 mg mouth daily. Tablet Sustained Release 24 hr Active Problems Problem Noted Date Lichen simplex 08/28/2015 Social History Tobacco Use Types Packs/Day Years Used Date Smoking Tobacco: Never Assessed Sex Assigned at Date Recorded Not on file Last Filed Vital Signs Vital Sign Reading Time Taken Comments Blood Pressure 136/86 02/04/2016 3:27 PM EST Pulse 90 02/04/2016 3:27 PM EST Temperature - - Respiratory Rate - - Oxygen Saturation 97% 02/04/2016 3:27 PM EST Inhaled Oxygen Concentration - - Weight 76.1 kg (167 lb 12.8 oz) 02/04/2016 3:27 PM EST Height 167 cm (5' 5.75) 02/04/2016 3:27 PM EST Body Mass Index 27.29 02/04/2016 3:27 PM EST Plan of Treatment Health Maintenance Due Date Last Done Comments Covid-19 Vaccine (#1) 1960 HIV screen 01/30/1980 Hepatitis C Screening 01/30/1980 Tdap adult 1981 Tetanus vaccine 1981 HPV test 01/30/1992 PAP Smear 01/30/1992 Breast Cancer Share Decision Needed 2002 Colonoscopy 2007 Breast Cancer screening 01/30/2012 Zoster vaccine (1 of 2) 01/30/2012 Advance Directive 2017 Influenza (Flu) vaccine (1 of 1 - Influenza standard 11/14/2021 series) Care Teams Aircraft Restorer Relationship Specialty Start Date End Date Shirin Menard MD PCP - General Oncology 02/04/16 [address] [place], [place] [address]
--- OUTSIDE RECORDS SUMMARY | 2022-02-07 00:12 | XMS_ITS | Encounter Summary ---
:1960 Author Organization [facility] [place] [address] Care Team Providers Name Role Phone Shirin Menard MD Primary Care Provider Encounter Details Date Type Department Care Team Description 02/04/2016 [facility] [address] [place] [address] [place] [address] [phone] (Wo rk) Social History Tobacco Use Types [...] Mass Index 27.29 02/04/2016 3:27 PM EST documented in this encounter Patient Instructions Patient InstructionsLucy Wong APRN - 02/04/2016 3:30 PM EST Recommendations: --Order to [facility] to change CPAP autoPAP pressure to 7-16cw --Ask [facility] to send small nasal cushion for DreamWear nasal mask when for next replacement interval --Call [facility] to figure out billing --Printed handouts given to patient on proper mask fit, parts cleaning/maintenance, supply replacement intervals --Driving safety discussed, recommend patient not drive if drowsy, if drowsy while driving, assembler for puller over hand and nap. --Follow-up: RTC 3 months with KE+ documented in this encounter Progress Notes Lucy Wong APRN - 02/04/2016 3:30 PM EST Sleep Medicine Follow-Up Note HPI: Ms. Debbie Pedraza is a 56 y.o. female seen for follow-up of obstructive sleep apnea. Patientpresents today for follow-up in PAP clinic. She just started on beta blockers for HTN. Sleep Study: PSG 09/25/15 Obstructive sleep apnea of a mild to moderate degree with well maintained oxygen saturations of 91 %or above. The overall AHI was 19/hr with a CMS AHI of 0.8/hr.Visual to loud snoring was observed. Weight: 169lbs Titration 10/24/15, Wt: 171lbs --AUTO CPAP 7 - 14 with a Dreamwear nasal mask or mask of her preference. Treatment: CPAP Device: DreamStation Auto CPAP Pressure: 7-14cw Pressure Intolerance: tolerable Interface/Mask: Has DreamWear nasal mask Difficulty tolerating mask interface: none Chin Strap: Doesn't use or have Humidity on? (ask if ResMed device): she thinks so HCC: [facility] [place], [place] Insurance: [facility] Snoring: Thinks so but not sure, she will ask Dry Mouth/Throat: Yes, and dry eyes but now wearing sleeping mask for mask leak Difficulty Breathing Through Nose/Mouth Breathing: no Symptoms Improved?: [place]: 11 Was 10/06 at consult Nocturnal sleep quality improved: dreaming more, is sleeping better Daytime symptoms improved (Daytime sleepiness/fatigue): Still feels tired sometimes during the day, but can depend on how much sleep she gets, with stress Naps: Sometimes, sets a timer for 20 minutes and can fall asleep, but a couple times per months Involuntary Dozing: rare, but while watching TV, might be more prone to dozing Sleepiness or Drowsiness when driving: drives, but no increased drowsiness, might get tired driving home late at night Sleep Pattern: Bedtime: 10:30-11p, falls asleep quickly Rise time: 6:15am Awakenings: At most once, if that ROS: Constitutional: Weight change: Reports stable ENT: Nasal Obstruction: none : Nocturia: no Card Data Download: Date Range: 11/06/15-02/03/16 (she didn't pick it up until November 08) Pressure: 7-14cw 90% 12.3 Avg 9.8 Residual AHI: 4.5 Avg Vibratory Snore Index: 3.1 Avg % Night in Large Leak: 0.2% Average Usage (Days Used/Hours): 7 hrs 17 mins # Days of usage: 85/90 % Days used > 4 hours: 7 hours 17 mins Physical Exam: BP 136/86 Pulse 90 Ht 167 cm (5' 5.75) Wt 76.1 kg (167 lb 12.8 oz) SpO2 97% BMI 27.29 kg/m2 General: pleasant 56 y.o. female, no distress; weight is down 4 pounds from Oct 2015 titration Respirations: Even and not labored at rest DERM: Skin Irritation: None Psych: Judgement and Insight: intact Assessment Ms. Debbie Pedraza is a 56 y.o. female seen for obstructive sleep apnea. The data download reveals the AHI, VSI and leak appear to be well controlled. Patient is doing well with the current pressure and reports some improvement with her sleep quality and daytime energy. Her current pressure is set at 7-14cw and though her 90% pressure for the past 3 months was at 12.3, she often reaches the maximum pressure of 14 and at several times during the last 7 days. Order to [facility] to change pressures to 7-16cw, allowing for higher maximum. Patient likes her mask but sometimes it feels too tight, sometimes air is blowing in her eyes so now she uses a sleep mask. She is waking with red lines on her face. Showed patient proper fit today, and tried small nasal cushion which may work better for her than the medium size. She may have some dry mouth but is not using either the humidifier or heated tubing, as they are on solar power and she wants to conserve energy. Discussed that the energy used nightly would be low. Humidifier/Heater function/rational and settings were reviewed with the patient along with supply replacement. Printed handouts given to patient on proper mask fit, parts cleaning/maintenance, supply replacement intervals. Patient is very frustration in that she works 3 jobs during the day and has limited time to call or visit [facility] in [place], went in there once but was unable to getall the help she needed when she even called ahead to let them know she was coming. Recommended she call and ask if making an appointment would be better. She had questions today on billing, identifying parts of the mask, so we went over the latter but I asked her to f/u with [facility] on the billing. Time spent face to face: 45 minutes 30 minutes of this 45 minute visit was spent in face to face discussion with the patient regarding counseling/education on PAP machine/parts cleaning and maintenance, supply replacement and intervals, and mask fit and options. Recommendations: --Order to [facility] to change CPAP autoPAP pressure to 7-16cw --Ask [facility] to send small nasal cushion for DreamWear nasal mask when for next replacement interval --Call [facility] to figure out billing --Printed handouts given to patient on proper mask fit, parts cleaning/maintenance, supply replacement intervals --Driving safety discussed, recommend patient not drive if drowsy, if drowsy while driving, assembler for puller over hand and nap. --Follow-up: RTC 3 months with KE The patient indicates understanding of these issues and agrees with the plan. Lucy Wong APRN documented in this encounter Plan of Treatment Not on filedocumented as of this encounter Visit Diagnoses Diagnosis CAS on CPAP Obstructive sleep apnea (adult) (pediatr ic) documented in this encounter Care Teams Chyron Operator Relationship Specialty Start Date End Date Shirin Menard MD PCP - General Oncology 02/04/16 [address] [place] [address] documented as of this encounter
--- OUTSIDE RECORDS SUMMARY | 2022-02-07 00:12 | XMS_ITS | Encounter Summary ---
:1960 Author Organization [facility] [place] [address] Care Team Providers Name Role Phone Jose David Gonsales MD Primary Care Provider Reason for Visit Consultation (Routine) - Closed Specialty Diagnoses / Procedures Referred By Contact Refer red To Contact Sleep Center Diagnoses CAS (obstructive sleep apnea) Linda Jansen MD [facility] Sleep Medicine Procedures PRG POLYLSOM 6+ YRS SLEEP W CPAP W 4+ ADDL RODRIGO ATTND [facility] [address] [place] [address] [place] [address] Referral ID Status Reason Start Date Expiration Date Visits V isits Requested Authorized [id number] Closed Test Only 10/05/2015 10/04/2016 1 1 Encounter Details Date Type Department Care Team Description 10/24/2015 Procedure visit Sleep Center at Linda Jansen MD CAS (obstructive [address] [facility] sleep apnea) [address], [address] (Primary Dx) [place], [place] SLEEP [place]ORDERS [address] CENTER [phone] [place], [place] [address] Social History Tobacco Use Types Packs/Day Years Used Date Smoking Tobacco: Never Assessed Sex Assigned at Date Recorded Not on file documented as of this encounter Progress Notes Linda Jansen MD - 10/24/2015 8:30 PM EDT Images from the original note were not included. Overnight Polysomnogram Report - PAP Titration Trial History Of Present Illness: Debbie Pedraza presents for overnight testing in the setting of symptomatic CAS. Polysomnography: The patient's sleep was evaluated for one night at the [facility]. Sleep was monitored in accordance with recommended AASM guidelines. The recording also included oral/nasal airflow, chest and abdominal respiratory effort, nasal pressure, single channel EKG, intercostal EMG, bilateral tibialis EMG, and oxygen saturation (by pulse oximeter). Type of Positive Pressure Utilized: CPAP Report - Sleep/EEG: CPAP titration was performed from 22:20 to 6:13 yielding a total sleep time of 310 min with all stages of sleep seen. REM accounted for 23 % of TST. Slow wave sleep accounted for 40%. No major EEG abnormalities were noted. She slept in the R lateral position the entire night due to back pain. - Respiratory: CPAP was titrated from a pressure of 5cm to 9cm. Ongoing obstruction was noted at 5 cm; no sleep was seen at 7 cm. A pressure of 8-9 cm pressure was demonstrated efficacious in both NREMand REM lateral supine. Central apneas were noted in the sleep wake transitions leading to oxygen carmen aturations at times. An Eson nasal mask size medium was used the entire night. Leaks were well contained. - EKG: Normal sinus rhythm. - EMG: Unremarkable - COMMENTS: Head of bed: flat Technical quality of the study: good Post study questionnaire: The patient reported sleeping much worse and feeling slightly better on the morning after testing. Lower back spasms and right hip pain were problematic. Assessment: Debbie Pedraza is a 55 yo female who presents for a CPAP titration study which demonstrates good control of respiratory events at pressures of 8 and 9 cm in the lateral position. No sleepwas see at a pressure of 7cm, hence it is unclear if slightly lower pressures would be adequate. Also, no supine sleep was seen this night of testing; higher pressures may be needed in that position ofsleep. Given these findings, I recommend a trial of AUTOCPAP set to range from 7 - 14 cm with use of an Eson nasal mask or mask of her preference. I spoke to Debbie. Her back was bothering her from the drive down to testing. She did reasonably well with CPAP despite that. She sometimes sleeps on her stomach and was considering trying nasal pillows. I suggested she look at the [employer] nasal mask. [facility] to [facility] in [place], [place]. Recommendations: 1. AUTO CPAP 7 - 14 with a Dreamwear nasal mask or mask of her preference. 2. Follow up in CPAP clinic about 5 weeks after initiation. Linda Jansen MD [facility] REPORT of TITRATION Polysomnography Patient Name: Debbie Pedraza Study Date: 10/24/2015 Age & Sex: 55 y.o. Female Height: 5'6 Date of : 1960 Weight: 171 lbs BMI: 27.6 Referring Provider: Recording Technologist: BELINDA EGAN Scoring Technologist: SHANIKA ZAVALA Sleep Fellow: Sleep Specialist: LINDA JANSEN M.D. Scoring Technologist Comments: ECG: NSR Ectopy: Description of Study: Diagnostic polysomnography was performed utilizing frontal, central & occipital EEG, EOG, submentalis EMG, oronasal thermocouple, nasal pressure, ECG, thoracic and abdominal inductance plethysmography, right and left anterior tibialis EMG, snore sensor, and pulse oximetry according to AASM established guidelines. Study Details & Sleep Architecture Diagnostic Start Time (Lights Off): 22:20:48 Total Recording Time: 472.5 min Diagnostic End Time (Lights On): 06:13:19 Total Sleep Time (minutes): 310.5 Total Num. of Stage Shifts: 67 Total Sleep Time (hrs:min): 5:10.5 Total Num. of Awakenings: 16 Sleep Onset Latency: 2.0 min Total Num. of Trans. to N1: 13 Sleep Efficiency: 65.7% Total Num. of REM Periods: 3 Stage Results: Time (minutes) %TST Latency (minutes) WASO: 160.0 - - N1: 12.0 3.9 0.0 N2: 102.5 33.0 2.5 N3: 123.5 39.8 99.0 REM: 72.5 23.3 156.0 75.5 (minus wake) Arousal Counts: NREM REM Total Spontaneous: 34 (8.6/hr) 1 (0.8/hr) 35 (6.8/hr) Sum of All Arousals: 50 (12.6/hr) 1 (0.8/hr) 51 (9.9/hr) Spontaneous arousals include only EEG arousals not associated with a respiratory event or PLM. Body Position: Supine Non-Supine Non-REM: 0.0 min 238.0 min REM: 0.0 min 72.5 min Total Sleep: 0.0 min (0.0%) 310.5 min (100.0%) Respiratory Events Apneas Obstructive Mixed Central Total Apneas Total Count: 0 0 13 13 Mean Duration (sec): 0 0 19 - Longest Duration (sec): 0 0 26.4 - Index (REM/NREM): 0.0 / 0.0 0.0 / 0.0 0.0 / 3.3 - Index (Sup./Non-Sup.): 0.0 / 0.0 0.0 / 0.0 0.0 / 2.5 - Index (Total): 0.0 0.0 2.5 2.5 Hypopneas & RERAs Hypopnea Definitions: Hypopnea* CMS Hypopnea 3% desat mitch. Hypopneas All RERA Total Count: 1 14 15 0 Mean Duration (sec): 18.0 24.9 - 0 Longest Duration (sec): 18.0 45.7 - 0 Index (REM/NREM): 0.0 / 0.3 0.8 / 3.3 0.8 / 3.6 0.0 / 0.0 Index (Sup./Non-Sup.): - / 0.2 - / 2.7 0 / 2.9 0.0 / 0.0 Index (Total): 0.2 2.7 2.9 0.0 *[facility]-defined hypopneas include only hypopneas with a >=4% oxygen desaturation. Includes hypopneas with an arousal or with a 3%-4% desaturation. [facility] Hypopneas not included. Periodic Breathing Total Sleep Time Time (minutes) 0.0 Time (%Sleep Time) 0.0 AHI: Includes all apneas & all hypopneas associated with an arousal or a ? 3% desaturation. Supine Non-Sup. REM NREM Total Count: 0 28 1 27 28 Index (events/hr): 0.0 5.4 0.8 6.8 AHI = 5.4 [facility] AHI: Includes all apneas & only hypopneas associated with a ? 4% desaturation. Supine Non-Sup. REM NREM Total Count: 0 14 0 14 14 Index (events/hr): 0 2.7 0.0 3.5 CMS = 2.7 Obstructive AHI: Includes obstructive & mixed apneas as well as all hypopneas. Excludes central apneas and RERAs. Supine Non-Sup. REM NREM Total Count: 0 15 1 14 15 Index (events/hr): 0 2.9 0.8 3.5 OAHI = 2.9 RDI: Includes all apneas, all hypopneas, all RERAs, and all ???Unsure??? events. Supine Non-Sup. REM NREM Total Count: 0 28 1.0 27.0 28 Index (events/hr): - 5.4 0.8 6.8 RDI = 5.4 Oxygen Saturation Details (Overall) SpO2 Awake NREM REM All Sleep MATILDE Report Sleep Mean: 96% 96% 97% 96% 3% MATILDE 6.7 3.3 Minimum: - 87% 93% 87% 4% MATILDE 4.0 1.5 SpO2 Awake (minutes) NREM (minutes) REM (minutes) All Sleep (minutes) ?90% 1.5 0.5 0.0 0.5 ?89% 1.0 0.2 0.0 0.2 ?88% 0.7 0.1 0.0 0.1 90-99% 152.3 237.5 72.5 310.0 80-89.9% 1.0 0.2 0.0 0.2 79-79.9% 0.0 0.0 0.0 0.0 60-69.9% 0.0 0.0 0.0 0.0 50-59.9% 0.0 0.0 0.0 0.0 ?50% 0.0 0.0 0.0 0.0 Cardiac Details Heart Rate (bpm) Total Study NREM REM All Sleep Minimum - 65 65 65 Maximum 95 95 95 95 Mean - 77 78 77 Limb Movement Details Periodic Limb Movements Total PLMs (and Index) PLMs w/ Arousals (and Index) Wake (after ???Lights Off???): 0 (0.0/hr) 0 (0.0/hr) NREM: 0 (0.0/hr) 0 (0.0/hr) REM: 0 (0.0/hr) 0 (0.0/hr) Total Sleep: 0 (0.0/hr) 0 (0.0/hr) Pressure Analysis Time (hh:mm:ss) IP/EP/O2 TST Supine Non-Sup. REM Non-REM REM Sup. 5/5/0 7/7/0 8/8/0 9/9/0 0:08:30 0:00:00 1:43:00 3:19:00 0:00:00 0:00:00 0:00:00 0:00:00 0:08:30 0:00:00 1:43:00 3:19:00 0:00:00 0:00:00 0:23:00 0:49:30 0:08:30 0:00:00 1:20:00 2:29:30 0:00:00 0:00:00 0:00:00 0:00:00 Respiratory Event Counts IP/EP/O2 Obstr. Ap. Mixed Ap. Central Ap. Hypopneas* RERAs 5/5/0 7/7/0 8/8/0 9/9/0 0 0 0 0 0 0 0 0 0 0 6 7 2 0 3 10 0 0 0 0 *Includes all types of hypopneas: those associated with arousals or ?3% desaturations. Respiratory Indices (events per hour) IP/EP/O2 OAI LEO ABDOULAYE HI* RDI 5/5/0 7/7/0 8/8/0 9/9/0 0.0 0.0 0.0 0.0 0.0 0.0 0.0 0.0 0.0 0.0 3.5 2.1 14.1 0.0 1.7 3.0 14.1 0.0 5.2 5.1 *Includes all types of hypopneas: those associated with arousals or ?3% desaturations. Respiratory Indices (events per hour) IP/EP/O2 AHI Supine Non-Sup. REM Non-REM 5/5/0 7/7/0 8/8/0 9/9/0 14.1 0.0 5.2 5.1 0.0 0.0 0.0 0.0 14.1 0 5.2 5.1 0.0 0.0 0.0 1.2 14.1 0.0 6.8 6.4 *Includes all types of hypopneas: those associated with arousals or ?3% desaturations. Oxygen Saturations IP/EP/O2 Minimum Mean 5/5/0 7/7/0 8/8/0 9/9/0 90 - 89 87 94 - 96 96 Graphs CPAP/Bi-Level PLMs Body Position documented in this encounter Miscellaneous Notes Addendum Note - Linda Jansen MD - 11/04/2015 9:50 AM EDT Addended by: LINDA JANSEN on: 11/04/2015 09:50 AM Modules accepted: Level of Service documented in this encounter Plan of Treatment Not on filedocumented as of this encounter Visit Diagnoses Diagnosis CAS (obstructive sleep apnea) - Primary Obstructive sleep apnea (adult) (pediatr ic) documented in this encounter Care Teams Movie Star Relationship Specialty Start Date End Date Jose David Gonsales MD PCP - General General Internal Medicine 04/23/15 [address] [place] [address] documented as of this encounter
--- OUTSIDE RECORDS SUMMARY | 2022-02-07 00:13 | XMS_ITS | Encounter Summary ---
:1960 Author Organization [facility] Address [address] [place] [address] Care Team Providers Name Role Phone Unavailable Primary Care Provider Unavailable Encounter Details Date Type Department Care Team Description 05/30/2002 Results Only [facility] - Gautam German MD conversion [address] [place] [address] Social History Tobacco Use Types Packs/Day Years Used Date Smoking Tobacco: Never Assessed Sex Assigned at Date Recorded Not on file documented as of this encounter Plan of Treatment Not on filedocumented as of this encounter Procedures Procedure Name Priority Date/Time Associated Diagnosis Comme nts CYTOPATHOLOGY Routine 05/30/2002 0:00 EST Results for this procedure are i n the results section . documented in this encounter Results CYTOPATHOLOGY (05/30/2002 0:00 EST) Component Value Ref Test Analysis Performed At [facility] Range Method Time Signature Pathology CYTOPATHOLOGY REPORT [facility] Report: [facility] Reports generated via electronic interface contain original data; however they are lacking the format of the original report. Caution should be taken when reading/interpreting unformatte d reports. Name: ? DEBBIE HUITRON ? Accession #: ? [id number] : ? 1960 (Age: 42) ??F ?Collect Date: ? 05/30/2002 Location: ? [facility] ? Receive Date: ? 06/01/2002 Provider: ?GAUTAM DONALDSON MD Copy to: ? Specimen/Source: ?ThinPrep Pap Test, Cervix/Endoce rvix Last Menstrual Period: ? 05/09/02 Other: ? HPVA - HPV testing requested if ASC-US on the current ThinPr ep Pap test. ? SPECIMEN ADEQUACY ? Satisfactory for Evaluation - transformation zone component present GENERAL CATEGORIZATION ? Negative for Intraepithelial Lesion or Malignancy ? Document reviewed and electronically signed by: ? LIAM Gonzalez(ASCP) ? Report Date: ??06/03/2002 08:44 End of Report Specimen (Source) Anatomical Location Collection Method / Collectio n Time Received Time / Laterality Volume 05/30/2002 06/01/2002 Gautam Donaldson MD PATHOLOGY ORDERABLES Performing Organization Address City/State/ZIP Code Phon e Number [facility] [address] [place] [address] SERVICES [facility] [address] [place] [address] documented in this encounter Visit Diagnoses Not on filedocumented in this encounter
--- OUTSIDE RECORDS SUMMARY | 2022-02-07 00:13 | XMS_ITS | Encounter Summary ---
:1960 Author Organization [facility] Address [address] [place] [address] Care Team Providers Name Role Phone Unavailable Primary Care Provider Unavailable Encounter Details Date Type Department Care Team Description 01/19/2001 Results Only [facility] - Gautam German MD conversion [address] [place] [address] Social History Tobacco Use Types Packs/Day Years Used Date Smoking Tobacco: Never Assessed Sex Assigned at Date Recorded Not on file documented as of this encounter Plan of Treatment Not on filedocumented as of this encounter Procedures Procedure Name Priority Date/Time Associated Diagnosis Comme nts CYTOPATHOLOGY Routine 01/19/2001 0:00 EST Results for this procedure are i n the results section . documented in this encounter Results CYTOPATHOLOGY (01/19/2001 0:00 EST) Component Value Ref Test Analysis Performed At [facility] Range Method Time Signature Pathology CYTOPATHOLOGY REPORT [facility] Report: [facility] Reports generated via electronic interface contain original data; however they are lacking the format of the original report. Caution should be taken when reading/interpreting unformatte d reports. Name: ? DEBBIE HUITRON ? Accession #: ? [id number] : ? 1960 (Age: 40) ??F ?Collect Date: ? 01/19/2001 Location: ? [facility] ? Receive Date: ? 01/21/2001 Provider: ?GAUTAM DONALDSON MD Copy to: ? Specimen/Source: ?ThinPrep Pap Test, Source Not Pr ovided Last Menstrual Period: ? 12/23/00 Hormonal/Contraceptive Status: ? Yes ? SPECIMEN ADEQUACY ? Satisfactory for evaluation. GENERAL CATEGORIZATION ? Within Normal Limits ? Document reviewed and electronically signed by: ? Neal Mccormick, CT(ASCP) ? Report Date: ??01/27/2001 10:20 End of Report Specimen (Source) Anatomical Location Collection Method / Collectio n Time Received Time / Laterality Volume 01/19/2001 01/21/2001 Gautam Donaldson MD PATHOLOGY ORDERABLES Performing Organization Address City/State/ZIP Code Phon e Number [facility] [address] [place] [address] SERVICES [facility] [address] [place] [address] documented in this encounter Visit Diagnoses Not on filedocumented in this encounter
--- OUTSIDE RECORDS SUMMARY | 2022-02-07 00:13 | XMS_ITS | Encounter Summary ---
:1960 Author Organization [facility] Address [address] [place] [address] Care Team Providers Name Role Phone Unavailable Primary Care Provider Unavailable Encounter Details Date Type Department Care Team Description 12/24/1999 Results Only [facility] - Gautam German MD conversion [address] [place] [address] Social History Tobacco Use Types Packs/Day Years Used Date Smoking Tobacco: Never Assessed Sex Assigned at Date Recorded Not on file documented as of this encounter Plan of Treatment Not on filedocumented as of this encounter Procedures Procedure Name Priority Date/Time Associated Diagnosis Comme nts CYTOPATHOLOGY Routine 12/24/1999 0:00 EDT Results for this procedure are i n the results section . documented in this encounter Results CYTOPATHOLOGY (12/24/1999 0:00 EDT) Component Value Ref Test Analysis Performed At [facility] Range Method Time Signature Pathology CYTOPATHOLOGY REPORT [facility] Report: [facility] Reports generated via electronic interface contain original data; however they are lacking the format of the original report. Caution should be taken when reading/interpreting unformatte d reports. Name: ? DEBBIE HUITRON ? Accession #: ? [id number] : ? 1960 (Age: 39) ??F ?Collect Date: ? 12/24/1999 Location: ? [facility] ? Receive Date: ? 12/26/1999 Provider: ?GAUTAM DONALDSON MD Copy to: ? Specimen/Source: ?Conventional Pap Test, Cervix Last Menstrual Period: ? 11/28/99 Hormonal/Contraceptive Status: ? Yes ? SPECIMEN ADEQUACY ? Satisfactory for evaluation. GENERAL CATEGORIZATION ? Benign Cellular Changes DESCRIPTIVE DIAGNOSIS ? Reactive cellular heriberto nges associated with inflammation present (includes repair). ? Document reviewed and electronically signed by: ? Joanna Conner MD ? Report Date: ??01/09/2000 12:46 End of Report Specimen (Source) Anatomical Location Collection Method / Collectio n Time Received Time / Laterality Volume 12/24/1999 12/26/1999 Gautam Donaldson MD PATHOLOGY ORDERABLES Performing Organization Address City/State/ZIP Code Phon e Number [facility] [address] [place] [address] SERVICES [facility] [address] [place] [address] documented in this encounter Visit Diagnoses Not on filedocumented in this encounter
--- OUTSIDE RECORDS SUMMARY | 2022-02-07 00:13 | XMS_ITS | Encounter Summary ---
:1960 Author Organization [facility] Address [address] [place] [address] Care Team Providers Name Role Phone Unavailable Primary Care Provider Unavailable Encounter Details Date Type Department Care Team Description 01/22/2022 Lab Requisition [facility] Outr Resulting Lab, Pathology & Laboratory Provider [facility] [address] [place] [address] Social History Tobacco Use Types Packs/Day Years Used Date Smoking Tobacco: Never Assessed Sex Assigned at Date Recorded Not on file documented as of this encounter Plan of Treatment Not on filedocumented as of this encounter Procedures Procedure Name Priority Date/Time Associated Comments Diagnosis [facility]CP ANTIBODIES Routine 01/22/2022 15:20 Results f or this EST procedure are i n the results section. ANTI NUCLEAR AB Routine 01/22/2022 15:20 Results for this (BAN), IFA EST procedure are i n the results section. documented in this encounter Results ANTI NUCLEAR AB (BAN), IFA (01/22/2022 15:20 EST) [facility] Method Time Signature BAN Interpretation Negative Negative 01/23/2022 [facility] 13:56 EST [facility] Comment: No titer performed, BAN Screen is negative. Specimen Anatomical Collection Method Collection Time Receive d Time (Source) Location / / Volume Laterality Blood VENOUS BLOOD / 01/22/2022 15:20 2 Unknown EST 21:44 EST Narrative [facility] - 01/23/2022 13:56 EST Results were obtained with the INOVA NOV A Lite HEp-2 BAN Kit by indirect immunofluorescence. Provider Outr Resulting Lab IMMUNOLOGY AND SEROLOGY OR DERABLES Performing Organization Address City/State/ZIP Code Phon e Number [facility] [address] [place] [address] SERVICES CCP ANTIBODIES (01/22/2022 15:20 EST) athologist Signature CCP Antibodies <2.5 <5.0 U/mL 01/23/2022 [facility] 8:53 EST CENTER LABOR[facility] SERVICES Specimen Anatomical Collection Method Collection Time Receive d Time (Source) Location / / Volume Laterality Blood VENOUS BLOOD / 01/22/2022 15:20 2 Unknown EST 21:44 EST Provider Outr Resulting Lab IMMUNOLOGY AND SEROLOGY OR DERABLES Performing Organization Address City/State/ZIP Code Phon e Number [facility] [address] [place] [address] SERVICES documented in this encounter Visit Diagnoses Not on filedocumented in this encounter
--- OUTSIDE RECORDS SUMMARY | 2022-02-07 00:13 | XMS_ITS | Encounter Summary ---
:1960 Author Organization [facility] Address [address] [place] [address] Care Team Providers Name Role Phone Unavailable Primary Care Provider Unavailable Encounter Details Date Type Department Care Team Description 08/18/2003 Results Only [facility] - Gautam German MD conversion [address] [place] [address] Social History Tobacco Use Types Packs/Day Years Used Date Smoking Tobacco: Never Assessed Sex Assigned at Date Recorded Not on file documented as of this encounter Plan of Treatment Not on filedocumented as of this encounter Procedures Procedure Name Priority Date/Time Associated Diagnosis Comme nts CYTOPATHOLOGY Routine 08/18/2003 0:00 EDT Results for this procedure are i n the results section . documented in this encounter Results CYTOPATHOLOGY (08/18/2003 0:00 EDT) Component Value Ref Test Analysis Performed At [facility] Range Method Time Signature Pathology CYTOPATHOLOGY REPORT [facility] Report: [facility] Reports generated via electronic interface contain original data; however they are lacking the format of the original report. Caution should be taken when reading/interpreting unformatte d reports. Name: ? DEBBIE HUITRON ? Accession #: ? [id number] : ? 1960 (Age: 43) ??F ?Collect Date: ? 08/18/2003 Location: ? [facility] ? Receive Date: ? 08/21/2003 Provider: ?GAUTAM DONALDSON MD Copy to: ? Specimen/Source: ?ThinPrep Pap Test, Cervix/Endoce rvix Last Menstrual Period: ? 07/31/03 Other: ? HPVA - HPV testing requested if ASC-US on the current ThinPr ep Pap test. ? SPECIMEN ADEQUACY ? Satisfactory for Evaluation - transformation zone component present GENERAL CATEGORIZATION ? Negative for Intraepithelial Lesion or Malignancy ? Document reviewed and electronically signed by: ? LIAM Gonzalez(ASCP) ? Report Date: ??08/24/2003 06:07 End of Report Specimen (Source) Anatomical Location Collection Method / Collectio n Time Received Time / Laterality Volume 08/18/2003 08/21/2003 Gautam Donaldson MD PATHOLOGY ORDERABLES Performing Organization Address City/State/ZIP Code Phon e Number [facility] [address] [place] [address] SERVICES [facility] [address] [place] [address] documented in this encounter Visit Diagnoses Not on filedocumented in this encounter
--- OUTSIDE RECORDS SUMMARY | 2022-02-07 00:13 | XMS_ITS | Encounter Summary ---
:1960 Author Organization [facility] Address [address] [place] [address] Care Team Providers Name Role Phone Unavailable Primary Care Provider Unavailable Encounter Details Date Type Department Care Team Description 05/21/2021 Lab Requisition [facility] Angelica Chacon, En counter for other Pathology & MD general examination Laboratory Medicine [address] [facility] ,[address] [place] [id number] Social History Tobacco Use Types Packs/Day Years Used Date Smoking Tobacco: Never Assessed Sex Assigned at Date Recorded Not on file documented as of this encounter Plan of Treatment Not on filedocumented as of this encounter Procedures Procedure Name Priority Date/Time Associated Comments Diagnosis PAP TEST Today 05/20/2021 15:45 Encounter for other Resu lts for this EST general examination procedur e are in the results section. HUMAN PAPILLOMAVIRUS Today 05/20/2021 15:45 Encounter for ot her Results for this (HPV) DETECTION-HIGH EST general examination procedure are in RISK TYPES the results section. documented in this encounter Results HUMAN PAPILLOMAVIRUS (HPV) DETECTION-HIGH RISK TYPES (05/20/2021 15:45 EST) [facility] Method Time Signature Human Negative Negative 05/24/2021 [facility] Papillomavirus 20:41 EST CENTER (HPV) LABORATORY Detection-High SERVICES Types Comment: No E6 or E7 mRNA is detected fr HPV types 16,18,31,33,35,39,45,51,52,56,58,59,66, and 68 by boat joiner mediated amplification. Specimen Anatomical Collection Method Collection Time Receive d Time (Source) Location / / Volume Laterality Pap Test (Cervix 05/20/2021 15:45 022 and/or EST 14:28 EST Endocervix) Angelica Chacon MD MICROBIOLOGY - GENERAL ORDER PUMA Performing Organization Address City/State/ZIP Code Phon e Number [facility] [address] [place] [address] SERVICES PAP TEST (05/20/2021 15:45 EST) Component Value Ref Test Analysis Performed At [facility] Range Method Time Signature Specimens A. Cervix and/or 05/24/2021 [facility] Endocervix , 20:41 [facility] ThinPrep Imaging LABORATORY System with SERVICES Manual Evaluation Specimen Satisfactory for 05/24/2021 [facility] Adequacy Evaluation - 20:41 [facility] transformation LABORATORY zone component SERVICES present General Negative for 05/24/2021 [facility] Categorization intraepithelial 20:41 [facility] lesion or LABORATORY malignancy SERVICES Attestation . 05/24/2021 [facility] Elect ronically 20:41 [facility] signed by LABORATORY Ania Edmond, SERVICES CT(ASCP) o n 05/24/2021 at 2041 Clinical History SEE BELOW 05/24/2021 [facility] 20:41 [facility] LABORATORY SERVICES HPV The result for the Human Pap illomavirus (HPV) Detection-High Risk Types is Negative. No E6 or E7 mRNA is detected from HPV types 16,18,31,33,35,39,45,51,52,56,58,59,66, and 68 by boat joiner mediated 05/24/2021 [facility] amplification.Testing was pe rformed on specimen [id number] and was resulted on 05/24/2021 2039 EST by CHAPIN, LAB INSTRUMENT RESULTS IN 20:41 [facility] LABORATORY SERVICES Performing Lab [facility] 05/24/2021 [facility] LAB 20:41 [facility] LABORATORY SERVICES Scanned Images 05/24/2021 [facility] 20:41 [facility] LABORATORY SERVICES Specimen Anatomical Collection Method Collection Time Receive d Time (Source) Location / / Volume Laterality Pap Test (Cervix 05/20/2021 15:45 022 and/or EST 13:32 EST Endocervix) Angelica Chacon MD PATHOLOGY ORDERABLES Performing Organization Address City/[facility]/ZIP Code Phon e Number [facility] [address] [place] [address] SERVICES documented in this encounter Visit Diagnoses Diagnosis Encounter for other general examination documented in this encounter
--- OUTSIDE RECORDS SUMMARY | 2022-02-07 00:13 | XMS_ITS | Encounter Summary ---
:1960 Author Organization [facility] Address [address] [place] [address] Care Team Providers Name Role Phone Unavailable Primary Care Provider Unavailable Encounter Details Date Type Department Care Team Description 09/29/2005 Results Only [facility] - Gautam German MD conversion [address] [place] [address] Social History Tobacco Use Types Packs/Day Years Used Date Smoking Tobacco: Never Assessed Sex Assigned at Date Recorded Not on file documented as of this encounter Plan of Treatment Not on filedocumented as of this encounter Procedures Procedure Name Priority Date/Time Associated Diagnosis Comme nts CYTOPATHOLOGY Routine 09/29/2005 0:00 EDT Results for this procedure are i n the results section . documented in this encounter Results CYTOPATHOLOGY (09/29/2005 0:00 EDT) Component Value Ref Test Analysis Performed At [facility] Range Method Time Signature Pathology CYTOPATHOLOGY REPORT [facility] Report: [facility] Reports generated via electronic interface contain original data; however they are lacking the format of the original report. Caution should be taken when reading/interpreting unformatte d reports. Name: ? DEBBIE HUITRON ? Accession #: ? [id number] : ? 1960 (Age: 45) ??F ?Collect Date: ? 09/29/2005 Location: ? [facility] ? Receive Date: ? 09/30/2005 Provider: ?GAUTAM DONALDSON MD Copy to: ? Specimen/Source: ? ThinPrep Pap Test, Cervix/Endocervix, processed on Strut ThinPrep Imaging System, with manual evaluation Last Menstrual Period: ? 09/23/05 Other: ? HPVA - HPV testing requested if ASC-US on the current ThinPr ep Pap test. ? SPECIMEN ADEQUACY ? Satisfactory for Evaluation - transformation zone component present GENERAL CATEGORIZATION ? Negative for Intraepithelial Lesion or Malignancy ? Document reviewed and electronically signed by: ? EMELI Aponte(ASCP) ? Report Date: ??10/01/2005 14:48 End of Report Specimen (Source) Anatomical Location Collection Method / Collectio n Time Received Time / Laterality Volume 09/29/2005 09/30/2005 Gautam Donaldson MD PATHOLOGY ORDERABLES Performing Organization Address City/State/ZIP Code Phon e Number [facility] [address] [place] [address] SERVICES [facility] [address] [place] [address] documented in this encounter Visit Diagnoses Not on filedocumented in this encounter
--- OUTSIDE RECORDS SUMMARY | 2022-02-07 00:13 | XMS_ITS | Encounter Summary ---
:1960 Author Organization [facility] Address [address] [place] [address] Care Team Providers Name Role Phone Unavailable Primary Care Provider Unavailable Encounter Details Date Type Department Care Team Description 10/02/2006 Results Only [facility] - Gautam German MD conversion [address] [place] [address] Social History Tobacco Use Types Packs/Day Years Used Date Smoking Tobacco: Never Assessed Sex Assigned at Date Recorded Not on file documented as of this encounter Plan of Treatment Not on filedocumented as of this encounter Procedures Procedure Name Priority Date/Time Associated Diagnosis Comme nts CYTOPATHOLOGY Routine 10/02/2006 0:00 EDT Results for this procedure are i n the results section . documented in this encounter Results CYTOPATHOLOGY (10/02/2006 0:00 EDT) Component Value Ref Test Analysis Performed At [facility] Range Method Time Signature Pathology CYTOPATHOLOGY REPORT [facility] Report: [facility] Reports generated via electronic interface contain original data; however they are lacking the format of the original report. Caution should be taken when reading/interpreting unformatte d reports. Name: ? DEBBIE HUITRON ? Accession #: ? [id number] : ? 1960 (Age: 46) ??F ?Collect Date: ? 10/02/2006 Location: ? [facility] ? Receive Date: ? 10/05/2006 Provider: ?GAUTAM DONALDSON MD Copy to: ? Specimen/Source: ? ThinPrep Pap Test, Cervix/Endocervix, processed on [employer] ThinPrep Imaging System, with manual evaluation Last Menstrual Period: ? 09/07/06 Hormonal/Contraceptive Status: ? Yes Other: ? Additional clinical information: Previous paps WNL HPVDX - HPV testing requested regardless of diag nosis on current ThinPrep Pap test. ? SPECIMEN ADEQUACY ? Satisfactory for Evaluation - transformation zone component present GENERAL CATEGORIZATION ? Negative for Intraepithelial Lesion or Malignancy ? Document reviewed and electronically signed by: ? EMELI Pitts(ASCP) ? Report Date: ??10/08/2006 12:05 End of Report Specimen (Source) Anatomical Location Collection Method / Collectio n Time Received Time / Laterality Volume 10/02/2006 10/05/2006 Gautam Donaldson MD PATHOLOGY ORDERABLES Performing Organization Address City/State/ZIP Code Phon e Number [facility] [address] [place] [phone] SERVICES [facility] [address] [place] [address] documented in this encounter Visit Diagnoses Not on filedocumented in this encounter
--- OUTSIDE RECORDS SUMMARY | 2022-02-07 00:13 | XMS_ITS | Encounter Summary ---
:1960 Author Organization [facility] Address [address] [place] [address] Care Team Providers Name Role Phone Unavailable Primary Care Provider Unavailable Encounter Details Date Type Department Care Team Description 11/18/2018 Results Only [facility]- Jamaal King MD [phone] [facility] [place] [address] (Wo rk) Social History Tobacco Use Types Packs/Day Years Used Date Smoking Tobacco: Never Assessed Sex Assigned at Date Recorded Not on file documented as of this encounter Plan of Treatment Not on filedocumented as of this encounter Procedures Procedure Name Priority Date/Time Associated Diagnosis Comme nts PAP TEST- RESULT Routine 11/18/2018 0:00 EDT Resu lts for this ONLY procedure are i n the results section. documented in this encounter Results PAP TEST- RESULT ONLY (11/18/2018 0:00 EDT) Component Value Ref Test Analysis Performed At [facility] Range Method Time Signature Pathology CYTOPATHOLOGY REPORT [facility] Report: CENTER Reports generated via electronic interface contain origina l data; LABORATORY however they are lacking the format of the original report. SERVICES Caution should be taken when reading/interpreting unformatte d reports. Name: ? DEBBIE HUITRON ? Accession #: ? [id number] ? : ? 1960 (Age: 58) ??F ?Collect Date: ? 2018 ? Location: ? [facility] ? Receive Date: ? 11/19/2018 ? Provider: JAMAAL MOODY MD Copy to: [employer] ? Final Report SPECIMEN ADEQUACY ? Satisfactory for Evaluation - assessment of transformation zone component not appl icable ( e.g. atrophy, vaginal sample, hysterectomy) GENERAL CATEGORIZATION ? Negative for Intraepithelial Lesion or Malignancy ?? Specimen/Source: ??Pap Test, Cervix/Endocervix, ThinPr ep Imaging System with manual evaluation Document reviewed and electronically signed by: ? Barbara Martinez, CT(ASCP)(IAC) ? Report ??Date: 11/23/2018 16:38 HPV with Pap Test ? Date Ordered: ? 11/23/2018 ? Status: ?? Signed Out ?Date Complete: ? 11/25/2018 ? By: ??System I nterface ? Date Reported: ? 11/25/2018 ? Interpretation RESULT: Negative for HPV. No E6 or E7 mRNA is detected from HPV types 16,18,31,33,35, 39,45,51,52,56,58,59,66, and 68 by community health director mediated amplification. Comments Document reviewed and electronically signed by: ? System Interface ? Report date: 11/25/2018 By the signature above, the attending physician certifies th at he/she has personally conducted a gross and/or microscopic examin ation of the described specimens and rendered or confirmed the above diagnosis. End of Report Specimen (Source) Anatomical Location Collection Method / Collectio n Time Received Time / Laterality Volume 11/18/2018 11/19/2018 Jamaal Moody MD PATHOLOGY ORDERABLES Performing Organization Address City/State/ZIP Code Phon e Number [facility] [address] [place] [address] SERVICES documented in this encounter Visit Diagnoses Not on filedocumented in this encounter
--- OUTSIDE RECORDS SUMMARY | 2022-02-07 00:13 | XMS_ITS ---
:1960 External Reference #:[id number] Author Care Team Providers Name Role Phone Deborah Singleton Primary Care Provider Unavailable Allergies Code Code System Name Reaction Severity Status Onset Penicillin Rash Mild to Moderate Active House Dust Mite Other Mild to Moderate Active 10/14/1993 Medications Name Status Start Date Stop Date ? ? Baby Aspirin Active ? Not available Claritin Active ? Not available 1 pill/24-hr clobetasol 0.05 % topical ointment Active ? Not available magnesium Active ? Not available 2 gel pills metoprolol succinate ER 50 mg tablet,extended release 24 Active ? Not available hr Nasal [place] Active ? Not available for allergies triamcinolone acetonide 0.5 % topical cream Completed ? 10/28/2017 Problems Name Status Onset Date Source ? Essential Hypertension Active 10/28/2017 ? Seasonal Allergic Rhinitis Active 10/28/2017 ? Vitamin D Deficiency Active 11/29/2017 ? Eczema Active 11/29/2017 ? Dietary Management Surveillance Active 11/29/2017 ? Serum Ferritin High Active 11/29/2017 ? Procedures Date Name Performed by ? 03/16/2014 Colonoscopy Information not avai lable Results Lab Results Date Name Specimen Result Interpretation Description Value Range Status Address ? 10/28/2017 Apolipoprotein Serum ? Apolipoprotein 153 101 -199 [facility] a1 (Apo a-1), a-1 mg/dL mg/dL [facility]: Serum or Plasma [address] [place] [address], [place] 10/28/2017 Apolipoprotein B Serum ? Apolipoprotein 88 5 5-125 [facility] (Apo B), Serum B mg/dL mg/dL Di agnostics: [address], [place] 10/28/2017 Immunoglobulins Serum ? Immunoglobulin [phone] [facility] Iga+igg+igm, g mg/dL mg/dL Diag nostics: Quantitative, [address] [place] [address], [place] ? ? Serum ? Immunoglobulin 247 68-408 [facility] a mg/dL mg/dL Diagnostic s: [address], [place] ? ? Serum ? Immunoglobulin 128 35-263 [facility] M mg/dL mg/dL Diagnostic s: [address], [place] 10/28/2017 Lipoprotein (a), Serum ? Lipoprotein 4 <=29 [facility] Serum (a) mg/dL mg/dL Diagnostic s: [address], [facility] [place] 10/28/2017 Vitamin B12, serum ? Vitamin B12 558 211-946 [facility] Serum pg/mL pg/mL Diagnostic s: [address], [facility] [place] 10/28/2017 CMP, Serum or serum ? Glucose 87 <100 [facility] Plasma mg/dL mg/dL Diagnostic s: [address], [place] ? ? serum ? Bun 18 7-25 [facility] mg/dL mg/dL Diagnostic s: [address], [place] ? ? serum ? Creatinine 0.80 0.70-1.2 [facility] mg/dL 0 mg/dL Diagnosti cs: [address], [place] ? ? serum Hi BUN / 22.5 6.0-21.0 [facility] gh Creatinine ratio ratio Diagno stics: Ratio [address], [place] ? ? serum ? eGFR 96 >60 [facility] [place] mL/min mL/min/1 Diagno stics: /1.73m .73m2 [address], [place] ? ? serum ? eGFR 83 >60 [facility] Non- mL/min mL/min/1 [facility]: [place] /1.73m .73m2 [address], [place] ? ? serum ? Sodium 144 135-145 [facility] mmol/L mmol/L Diagnostic s: [address], [place] ? ? serum ? Potassium 3.8 3.5-5.1 [facility] mmol/L mmol/L Diagnostic s: [address], [place] ? ? serum ? Chloride 105 98-107 [facility] mmol/L mmol/L Diagnostic s: [address], [place] ? ? serum ? Co2 29 21-31 [facility] mmol/L mmol/L Diagnostic s: [address], [facility] [place] ? ? serum ? Anion Gap 10 5-15 [facility] mEq/L mEq/L Diagnostic s: [address], [facility] [place] ? ? serum ? Calcium 10.2 8.6-10.3 [facility] mg/dL mg/dL Diagnostic s: [address], [facility] [place] ? ? serum ? Total Protein 7.3 6.4-8.9 [facility] g/dL g/dL Diagnostic s: [address], [facility] el ? ? serum ? Albumin 4.8 3.5-5.7 [facility] g/dL g/dL Diagnostic s: [address], [facility] el ? ? serum ? Globulin 2.5 1.9-3.5 [facility] g/dL g/dL Diagnostic s: [address], [facility] ? ? serum ? Albumin / 1.9 0.8-2.0 [facility] Globulin Ratio ratio ratio Di agnostics: [address], [facility] ? ? serum ? Tbili 0.5 0.1-1.5 [facility] mg/dL mg/dL Diagnostic s: [address], [facility] ? ? serum ? Alk. 90 41-108 [facility] Phosphatase IU/L IU/L Diagn ostics: [address], [facility] ? ? serum ? Ast 36 13-39 [facility] IU/L IU/L Diagnostic s: [address], [facility] ? ? serum ? Alt 48 7-52 [facility] IU/L IU/L Diagnostic s: [address], [facility] 10/28/2017 Ferritin, Serum serum Hi Ferritin 246.1 13.0-150 [facility] or Plasma gh NG/mL .0 NG/mL Diagn ostics: [address], [facility] 10/28/2017 Folate, Serum serum ? Folate 12.9 4.6-34.8 [facility] NG/mL NG/mL Diagnostic s: [address], [facility] 10/28/2017 Iron + Total serum ? Iron 104 50-212 [facility] Iron-binding ug/dL ug/dL Diag nostics: Capacity (TIBC), [address], [facility] ? ? serum ? Transferrin 307.5 203.0-36 [facility] mg/dL 2.0 Diagnostic s: mg/dL [address], [facility] ? ? serum ? Tibc 439.7 250.0-45 [facility] ug/dL 0.0 Diagnostic s: ug/dL [address], [facility] ? ? serum ? Uibc 335.7 155.0-35 [facility] ug/dL 5.0 Diagnostic s: ug/dL [address], [facility] ? ? serum ? %Saturation 23.7 % 14.0-50. [facility] 0 % Diagnostic s: [address], [facility] 10/28/2017 IgE, serum ? Total IgE 30.0 20.4-87. [facility] Quantitative, IU/mL 0 IU/mL Di agnostics: Serum [address], [facility] 10/28/2017 Vitamin D, serum ? Vitamin D 37.7 30.0-100 [facility] 25-Hydroxy, 25-Oh NG/mL .0 NG/mL [facility]: Total, Serum [address], [facility] 10/28/2017 TSH, Serum or serum ? Tsh 3.44 0.40-4.5 [facility] Plasma uIU/mL 0 uIU/mL Diagnost ics: [address], [facility] 10/28/2017 Thyroglobulin serum ? Tgab 11 0-115 [facility] Ab, Serum IU/mL IU/mL Diagnos tics: [address], [facility] 10/28/2017 Thyroid serum ? Tpoab 16 0-34 [facility] Peroxidase (Tpo) IU/mL IU/mL Diagnostics: Ab, Serum [address], [facility] 10/28/2017 T4, Free, Serum serum ? Free T4 0.96 0.93-1.7 [facility] NG/dL 0 NG/dL Diagnosti cs: [address], [facility] 10/28/2017 T3, Free, Serum serum ? Free T3 3.35 2.00-4.9 [facility] or Plasma pg/mL 0 pg/mL Diagno stics: [address], [facility] 10/28/2017 Copper, Serum or Plasma ? Copper, 113 80-155 F [facility] Plasma Serum/plasma ug/dL ug/dL Diag nostics: [address], [facility] 10/28/2017 HbA1C wholebl ? Hgb a1C 5.7 % 4.0-5.7 [facility] (Hemoglobin ood % Diagn ostics: a1C), Blood [address], [facility] ? ? wholebl ? Estimated 117 ? [facility] ood Average Glucose mg/dL D iagnostics: (C) [address], [facility] 10/28/2017 CBC W/ Auto Diff wholebl ? White Blood 7.2 4.0 -11.0 [facility] ood Cell Count 10^3/u 10^3/uL Diagn ostics: L [address], [facility] ? ? wholebl ? Red Blood Cell 4.38 4.00-5.4 [facility] ood Count 10^6/u 0 Diagnostic s: L 10^6/uL [address], [facility] ? ? wholebl ? Hemoglobin 14.3 12.5-16. [facility] ood g/dL 0 g/dL Diagnostic s: [address], [facility] ? ? wholebl ? Hematocrit 42.3 % 37.0-47. [facility] ood 0 % Diagnostic s: [address], [facility] ? ? wholebl ? Mean Cell 96.7 78.0-100 [facility] ood Volume fL .0 fL Diagnostic s: [address], [facility] ? ? wholebl ? Mean Cell 32.6 25.0-35. [facility] ood Hemoglobin pg 0 pg Diagno stics: [address], [place] ? ? wholebl ? Mean Cell 33.7 30.0-37. [facility] ood Hemoglobin g/dL 0 g/dL Diagno stics: Concentration [address], [place] ? ? wholebl ? Red Cell 13.2 % 11.5-14. [facility] ood Distribution 5 % Diag nostics: Width [address], [place] ? ? wholebl ? Platelet Count 231 150-450 [facility] ood 10^3/u 10^3/uL Diagnosti cs: L [address], [place] ? ? wholebl ? Mean Platelet 7.3 fL 6.8-10.4 [facility] ood Volume fL Diagnostic s: [address], [place] ? ? wholebl ? Neutrophil 58.4 % 40.0-70. [facility] ood Percent 0 % Diagnosti cs: [address], [place] ? ? wholebl ? Absolute 4.2 1.5-6.6 [facility] ood Neutrophil 10^3/u 10^3/uL Diagn ostics: L [address], [place] ? ? wholebl ? Lymphocyte 27.8 % 18.0-48. [facility] ood Percent 0 % Diagnosti cs: [address], [place] ? ? wholebl ? Absolute 2.0 0.8-4.8 [facility] ood Lymphocyte 10^3/u 10^3/uL Diagn ostics: L [address], [place] ? ? wholebl ? Monocyte 8.4 % 2.0-11.0 [facility] o[facility] Percent % Diagnosti cs: [address], [place] ? ? wholebl ? Absolute 0.60 0.00-0.9 [facility] o[facility] Monocyte 10^3/u 0 Diagnost ics: L 10^3/uL [address], [place] ? ? wholebl ? Eosinophil 4.5 % 0.0-5.0 [facility] ood Percent % Diagnosti cs: [address], [place] ? ? wholebl ? Absolute 0.3 0.0-0.5 [facility] ood Eosinophil 10^3/u 10^3/uL Diagn ostics: L [address], [facility] ? ? wholebl ? Basophil 0.9 % 0.0-2.0 [facility] ood Percent % Diagnosti cs: [address], [facility] ? ? wholebl ? Basophil 0.10 0.00-0.3 [facility] o[facility] Absolute 10^3/u 0 Diagnost ics: L 10^3/uL [address], [facility] 10/28/2017 Vitamin B6 Serum ? Vitamin B6 23.8 20.0-125 Fi [facility] (Pyridoxine), (Pyridoxal nmol/L .0 Diagnostics: Plasma 5-Phosphate) nmol/L [address], [facility] 10/28/2017 Zinc, Serum or Serum ? Zinc, 75 60-120 [facility] Plasma Serum/plasma ug/dL ug/dL Diag nostics: [address], [facility] Past Encounters None recorded. Social History Tobacco Smoking Status Former Smoker Vaccine List Vaccine Type DTaP 03/16/2011 Hib, unspecified formulation 07/14/2013 influenza, seasonal, injectable 01/14/2017 MMR 05/15/1983 Td (adult) 06/14/2004 Plan of Care Reminders Provider Appointments None recorded. ? ? Lab None recorded. ? ? Referral None recorded. ? ? Procedures None recorded. ? ? Surgeries None recorded. ? ? Imaging None recorded. ? ? Vitals Height Weight BMI Blood Pressure 5 ft 5.5 in 181 lbs 16 oz 29.8 kg/m2 136/86 mm[Hg]
--- OUTSIDE RECORDS SUMMARY | 2022-02-07 00:13 | XMS_ITS | Encounter Summary ---
:1960 Author Organization [facility] Address [address] [place] [address] Care Team Providers Name Role Phone Unavailable Primary Care Provider Unavailable Encounter Details Date Type Department Care Team Description 09/04/2004 Results Only [facility] - Gautam German MD conversion [address] [place] [address] Social History Tobacco Use Types Packs/Day Years Used Date Smoking Tobacco: Never Assessed Sex Assigned at Date Recorded Not on file documented as of this encounter Plan of Treatment Not on filedocumented as of this encounter Procedures Procedure Name Priority Date/Time Associated Diagnosis Comme nts CYTOPATHOLOGY Routine 09/04/2004 0:00 EDT Results for this procedure are i n the results section . documented in this encounter Results CYTOPATHOLOGY (09/04/2004 0:00 EDT) Component Value Ref Test Analysis Performed At [facility] Method Time Signature Pathology CYTOPATHOLOGY REPORT [facility] Report: [facility] Reports generated via electronic interface contain original data; however they are lacking the format of the original report. Caution should be taken when reading/interpreting unformatte d reports. Name: ? DEBBIE HUITRON ? Accession #: ? [id number] : ? 1960 (Age: 44) ??F ?Collect Date: ? 09/04/2004 Location: ? [facility] ? Receive Date: ? 09/04/2004 Provider: ?GAUTAM DONALDSON MD Copy to: ? Specimen/Source: ?ThinPrep Pap Test, Cervix/Endoce rvix Last Menstrual Period: ? Other: ? HPVA - HPV testing requested if ASC-US on the current ThinPr ep Pap test. ? SPECIMEN ADEQUACY ? Satisfactory for Evaluation - transformation zone component present GENERAL CATEGORIZATION ? Negative for Intraepithelial Lesion or Malignancy INTERPRETATION ? Reactive cellular heriberto nges associated with inflammation present (includes repair). ? Document reviewed and electronically signed by: ? FELICIA CHEATHAM MD ? Report Date: ??09/11/2004 18:44 End of Report Specimen (Source) Anatomical Location Collection Method / Collectio n Time Received Time / Laterality Volume 09/04/2004 09/04/2004 Gautam Donaldson MD PATHOLOGY ORDERABLES Performing Organization Address City/State/ZIP Code Phon e Number [facility] [address] [place] [address] SERVICES [facility] [address] [place] [address] documented in this encounter Visit Diagnoses Not on filedocumented in this encounter
--- OUTSIDE RECORDS SUMMARY | 2022-02-07 00:13 | XMS_ITS | Encounter Summary ---
:1960 Author Organization [facility] Address [address] [place] [address] Care Team Providers Name Role Phone Unavailable Primary Care Provider Unavailable Encounter Details Date Type Department Care Team Description 11/13/2020 Lab Requisition [facility] Outr Resulting Lab, Pathology & Laboratory Provider [facility] [address] [place] [address] Social History Tobacco Use Types Packs/Day Years Used Date Smoking Tobacco: Never Assessed Sex Assigned at Date Recorded Not on file documented as of this encounter Plan of Treatment Not on filedocumented as of this encounter Procedures Procedure Name Priority Date/Time Associated Diagnosis Comme nts COVID-19 TEST [facility] Today 11/13/2020 15:50 LAB PCR EDT COVID-19 TESTING Routine 11/13/2020 15:50 Results for this EDT procedure are i n the results section. documented in this encounter Results COVID-19 TEST [facility] PCR (11/13/2020 15:50 EDT) Specimen Anatomical Location Collection Method Collection Time Received Time (Source) / Laterality / Volume Swab ENTIRE NASOPHARYNX 11/13/2020 15:50 11/14 / Unknown EDT 16:13 EDT Provider Outr Resulting Lab MICROBIOLOGY - GENERAL ORD ERABLES Performing Organization Address City/State/ZIP Code Phon e Number [facility] [address] [place] [address] SERVICES COVID-19 TESTING (11/13/2020 15:50 EDT) [facility] Signature COVID-19 Negative Negative 11/15/2020 [facility] rt-PCR Result 11:51 EDT CENTER LABORATORY SERVICES Comment: This test has not been FDA cleared or ap proved. This test has been authorized by FDA under an EUA for use by authorized laboratories. This test has been authorized only for detection of nucleic acid fro m 2018-nCoV, not for any other viruses o r pathogens. This test is only authorized for the duration of the declaration that circumstances exist justifying the authorization of emergency use of in vitro d iagnostic tests for detection and/or jesus manuel gnosis of 2019-nCoV under section 564(b)(1) of Act, 21 U.S.C ?? 360bbb-3(b) (1), unless the authorization is terminated or revoked sooner. Negative results do not preclude 2019-nC oV infection and should not be used as the sole basis for treatment or other patient management decisions. Negative results must be combined with clinical observa tions, patient history, and epidemiologi narciso information. Testing was performed using the archana SA RS-CoV-2 assay ([employer] on the Archana 6800 System Performing Lab Archana [address] [facility] 11/15/2020 11:51 E DT [facility] Lab LABORATORY SERVICES Specimen Anatomical Collection Method Collection Time Receive d Time (Source) Location / / Volume Laterality Swab 11/13/2020 15:50 11/14/2020 EDT 16:13 EDT Provider Outr Resulting Lab MICROBIOLOGY - GENERAL ORD ERABLES Performing Organization Address City/State/ZIP Code Phon e Number [facility] [address] [place] [address] SERVICES documented in this encounter Visit Diagnoses Not on filedocumented in this encounter
--- OUTSIDE RECORDS SUMMARY | 2022-02-07 00:13 | XMS_ITS | Clinical Summary ---
:1960 Author Organization [facility] Address [address] [place] [address] Care Team Providers Name Role Phone Unavailable Primary Care Provider Unavailable Encounters Date Type Specialty Care Team Description 01/22/2022 Lab Requisition Clinical Laboratory Outr Resulting Lab , Provider from Last 3 Months Social History Tobacco Use Types Packs/Day Years Used Date Smoking Tobacco: Never Assessed Sex Assigned at Date Recorded Not on file Plan of Treatment Health Maintenance Due Date Last Done Comments Hepatitis C Screen 1960 COVID-19 Vaccine (#1) 1960 Procedures Procedure Name Priority Date/Time Associated Comments Diagnosis ANTI NUCLEAR AB Routine 01/22/2022 15:20 Results for this (BAN), IFA EST procedure are i n the results section. CCP ANTIBODIES Routine 01/22/2022 15:20 Results f or this EST procedure are i n the results section. from Last 3 Months Results CCP ANTIBODIES (01/22/2022 15:20 EST) athologist Signature CCP Antibodies <2.5 <5.0 U/mL 01/23/2022 [facility] 8:53 EST CENTER LABORATORY SERVICES Specimen Anatomical Collection Method Collection Time Receive d Time (Source) Location / / Volume Laterality Blood VENOUS BLOOD / 01/22/2022 15:20 2 Unknown EST 21:44 EST Provider Outr Resulting Lab IMMUNOLOGY AND SEROLOGY OR DERABLES Performing Organization Address City/State/ZIP Code Phon e Number [facility] [address] [place] [address] SERVICES ANTI NUCLEAR AB (BAN), IFA (01/22/2022 15:20 EST) [facility] gist Method Time Signature BAN Interpretation Negative Negative 01/23/2022 [facility] 13:56 EST CENTER LABORATORY SERVICES Comment: No titer performed, BAN Screen is negative. Specimen Anatomical Collection Method Collection Time Receive d Time (Source) Location / / Volume Laterality Blood VENOUS BLOOD / 01/22/2022 15:20 2 Unknown EST 21:44 EST Narrative [facility] SERVICES - 01/23/2022 13:56 EST Results were obtained with the [employer] NOV A Lite HEp-2 BAN Kit by indirect immunofluorescence. Provider Outr Resulting Lab IMMUNOLOGY AND SEROLOGY OR DERABLES Performing Organization Address City/State/ZIP Code Phon e Number [facility] [address] [place] [address] SERVICES from Last 3 Months
--- OUTSIDE RECORDS SUMMARY | 2022-02-07 00:13 | XMS_ITS | Encounter Summary ---
:1960 Author Organization [facility] Address [address] [place] [address] Care Team Providers Name Role Phone Unavailable Primary Care Provider Unavailable Encounter Details Date Type Department Care Team Description 10/23/2015 Results Only [facility]- [facility] Lyn Kruger MD [phone] [address] [place] [phone] (Wo rk) Social History Tobacco Use Types Packs/Day Years Used Date Smoking Tobacco: Never Assessed Sex Assigned at Date Recorded Not on file documented as of this encounter Plan of Treatment Not on filedocumented as of this encounter Procedures Procedure Name Priority Date/Time Associated Diagnosis Comme nts PAP TEST- RESULT Routine 10/23/2015 0:00 EDT Resu lts for this ONLY procedure are i n the results section. documented in this encounter Results PAP TEST- RESULT ONLY (10/23/2015 0:00 EDT) Component Value Ref Test Analysis Performed At [facility] Range Method Time Signature Pathology CYTOPATHOLOGY REPORT [facility] Report: CENTER Reports generated via electronic interface contain origina l data; LABORATORY however they are lacking the format of the original report. SERVICES Caution should be taken when reading/interpreting unformatte d reports. Name: ? DEBBIE HUITRON ? Accession #: ? [id number] ? : ? 1960 (Age: 55) ??F ?Collect Date: ? 2015 ? Location: ? [facility] ? Receive Date: ? 10/24/2015 ? Provider: LYN KRUGER MD Copy to: AGUS HOLLEY MD ? Final Report SPECIMEN ADEQUACY ? Satisfactory for Evaluation - transformation zone component present GENERAL CATEGORIZATION ? Negative for Intraepithelial Lesion or Malignancy ?? Hormonal/Contraceptive status: Intrauterine device: Mirena Specimen/Source: ??Pap Test, Cervix/Endocervix, ThinPr ep Imaging System with manual evaluation Document reviewed and electronically signed by: ? EMELI Pitts(ASCP) ? Report ??Date: 10/31/2015 13:29 HPV with Pap Test ? Date Ordered: ? 10/31/2015 ? Status: ?? Signed Out ?Date Complete: ? 11/02/2015 ? By: ??System I nterface ? Date Reported: ? 11/02/2015 ? Interpretation RESULT: Negative for HPV. No E6 or E7 mRNA is detected from HPV types 16,18,31,33,35, 39,45,51,52,56,58,59,66, and 68 by chassis inspector mediated amplification. Comments Document reviewed and electronically signed by: ? System Interface ? Report date: 11/02/2015 By the signature above, the attending physician certifies th at he/she has personally conducted a gross and/or microscopic examin ation of the described specimens and rendered or confirmed the above diagnosis. End of Report Specimen (Source) Anatomical Location Collection Method / Collectio n Time Received Time / Laterality Volume 10/23/2015 10/24/2015 Lyn Kruger MD PATHOLOGY ORDERABLES Performing Organization Address City/State/ZIP Code Phon e Number [facility] [address] [place] [address] SERVICES documented in this encounter Visit Diagnoses Not on filedocumented in this encounter
--- NOTE | 2022-02-07 06:45 | DI.US_ITS ---
Exam(s) US CAROTID EXAM: US CAROTID CLINICAL HISTORY: reported history of abnormality, unable to access R53.83 FATIGUE TECHNIQUE: Ultrasound performed using standard protocol. COMPARISON: No exams were available for comparison FINDINGS: Duplex evaluation of the carotid circulation was performed according to the usual protocol. There is little if any visible atheromatous plaque in the carotid circulation. Flow velocities are within no rmal limits in the common, internal, and external carotid arteries bilaterally. There is bilateral antegrade vertebral flow. IMPRESSION: No evidence of a hemodynamically significant carotid stenosis DATA REPOSITORY:
--- NOTE | 2022-02-07 06:45 | DI.MAMMO_ITS ---
Exam(s) MAMMO SCREENING EXAM: MAMMO SCREENING CLINICAL HISTORY: screening Z12.39 TECHNIQUE: Mammograms were interpreted according to the usual protocol including computer analysis w [employer] CAD system, tomosynthesis and C-view imaging. COMPARISON: FINDINGS: The breasts are of moderate density with fairly symmetrical distribution of fibroglandular tissue. N o dominant mass or clumped microcalcification is identified in either breast. The current examinatio n is compared with previous examinations including January 2021 and there has been no gross interval change in appearance in comparison with the prior studies. IMPRESSION: No specific evidence of malignancy at this time. Routine screening examinations are suggested at yea rly intervals due to the family history of breast carcinoma. BI-RADS Category 1 - Negative Breast Density - Category B - Scattered areas of fibroglandular density
== END ==
PROVIDERS: PCP Nurse Practitioner Family; Visit Provider Nurse Practitioner Family
DX: R53.83 Other fatigue (principal); Z12.31 Encounter for screening mammogram for malignant neoplasm of breast
CPT/HCPCS: 77063; 77067; 93880

== ENCOUNTER 2022-09-08 08:45 | Day surgery (SDC) | payer BC, SELFPAY ==
--- NOTE | 2022-09-07 19:28 | W.PM.DSUDISC ---
Date of service: 09/08/22 Time of Service: 11:44 Discharge Plan Disposition Patient Disposition: Home Condition: Good Discharge Details Reason For Visit: Screening colonoscopy Attending Provider: Raheem Lorenzo Primary Care Provider: Homero [place] Home Meds and New Rx's Prescriptions: Continued clobetasol 0.05 % ointment 1 applic topical DAILY PRN Patient Comments: for psoriasis calcipotriene 0.005 % cream 1 applic topical DAILY PRN Rx Instructions: rub in gently and completely fluticasone propionate [Allergy Relief (fluticasone)] 50 mcg/actuation spray,suspension 1 spray intranasal .morning PRN (Reason: allergy symptoms) Rx Instructions: administer into each nostril triamcinolone acetonide 0.1 % cream 1 applic topical TID PRN (Reason: rash) Qty: 80 0RF cholecalciferol (vitamin D3) 25 mcg (1,000 unit) tablet 25 mcg PO DAILY magnesium 250 mg tablet 250 mg PO DAILY Centrum Complete 1 EACH tablet 1 ea PO DAILY valacyclovir 500 mg tablet 500 mg PO DAILY Qty: 90 3RF metoprolol succinate 100 mg tablet extended release 24 hr 100 mg PO DAILY Qty: 90 4RF Discontinued bisacodyl [Dulcolax (bisacodyl)] 5 mg tablet,delayed release (DR/EC) 5 mg PO ONCE Qty: 4 0RF Rx Instructions: Take per colonoscopy instructions provided by ordering providers office polyethylene glycol 3350 17 gram/dose powder 17 g PO ONCE Qty: 238 0RF Rx Instructions: Take per colonoscopy instructions provided by ordering providers office Discharge Instructions Additional Instructions: Ailin, we were able to complete your colonoscopy today without any difficulty. The quality of your preparation was excellent. We had great visualization. I did not see any signs of tumors or polyps. Based on your family history, of a single second-degree relative with colon cancer, you should be screened every 10 years. If you find that another second-degree relative carries a diagnosis of colon cancer, then the screening interval should be shortened to 5 years. 1. If tolerated, consume a soft, low fiber diet for 1-2 days. 2[address] Do not drive, drink alcohol, operate machinery, make critical decisions, or do activities that require coordination or balance for 24 hours. 3. Because air was put into your colon during the procedure, expelling air from your rectum (passing gas or farting) is normal. 4. You may not have a bowel movement for 1-3 days because of the colonoscopy prep. This is normal. 5. Go directly to the emergency room if you notice any of the following: Develop chills (warm to touch), or if you have a thermometer and your temperature is above 101 Difficulty breathing or difficultly swallowing Persistent vomiting Severe abdominal pain, other than gas cramps Severe chest pain Black, tarry stools Any bleeding ? exceeding one tablespoon 6. Call your physician if the site where your intravenous was started becomes red, swollen, painful, and warm to touch. 7. Your physician has reviewed your pre-procedure medications. Please continue to take those medications as previously ordered. You will be given specific information/education regarding any changes to your medications before leaving. Activity:: Activity as Tolerated Diet:: As Tolerated Discharge Orders Discharge Orders: Discharge Order (Routine); Ordered 09/07/22 Ordered By: Raheem Lorenzo DS: Diagnosis Discharge Diagnosis (1) Screening for colon cancer: Status: Acute Asessment and Plan: Negative screening colonoscopy
--- NOTE | 2022-09-07 19:30 | W.COLOREPORT ---
Date of service: 09/08/22 Time of Service: 11:47 Colonoscopy Report Date of procedure: 09/08/22 Pre-op diagnosis general: screening colonscopy Post-op diagnosis procedure note: same Procedure: Colonoscopy Surgeon: Raheem Lorenzo Anesthesia Type: General:No Airway Estimated blood loss (mL): 0 Pathology: none sent Complications: None Disposition: same day Indications: Ailin is a 62 year old woman who needs a screening colonoscopy Prep: Miralax/Dulcolax Procedure Start Time: 11:02 Procedure End Time: : Retraction Time: 15 Findings: Negative screening colonoscopy Procedure Description: After the induction of monitored anesthetic care, and with the patient in left lateral decubitus position, I began by performing an external anorectal exam.? Perineum and skin were normal, as was the anal verge.? There was no evidence of external hemorrhoids.? Next, I performed a digital rectal exam.? I did not appreciate any abnormal findings.? Next, I advanced a colonoscope into the rectal vault.? I performed retroflexion.? This was normal.? Using insufflation, I then advanced the colonoscope beyond the rectal folds and into the sigmoid colon before advancing towards the cecum.? The quality of the prep was excellent.? The scope was noted to be in the cecum by identification of the ileocecal valve and appendiceal orifice.? I then began withdrawing the colonoscope using repeated irrigation as necessary for full evaluation of the colonic mucosa. ?Once the scope was withdrawn to the level of the rectum, great care was taken to examine portions of the rectal folds.? I did not see any signs of polyps or tumors. Finally, the scope was withdrawn and the patient was brought to the same-day surgery recovery unit as the anesthetic wore off. ?The findings and instructions were shared with the patient prior to discharge.
[2022-09-08 09:53] VITALS: BP 126/62; PULSE 71; RESP 16; TEMP 36.3; O2SAT 97
[2022-09-08] MEDS: Lactated Ringers 1,000 ML 80 ML IV (10:10)
--- NOTE | 2022-09-08 10:45 | W.ANESPRE ---
General Info Date of Service Date Performed: 09/08/22 Height: 5 ft 5.5 in Weight: 77.8 kg Body Mass Index (BMI): 28.0 Surgical Procedure: Operation Date: 09/08/22 10:35 Proposed Procedure Side Surgeon p Colonoscopy Raheem Lorenzo MD Pre-Op Diagnosis Post-Op Diagnosis Screening colonoscopy Meds Allergies and Home Medications Allergies Allergy/AdvReac Type Severity Reaction Status Date / Time Penicillins Allergy Intermediate rash Verified 09/08/22 09:49 house dust mite Allergy Verified 09/08/22 09:49 Home Medication Medication Instructions Recorded multivitamin-ferrous 1 ea PO DAILY 10/23/15 fumarate-folic acid 18 mg-400 mcg tablet (Centrum Complete) cholecalciferol (vitamin D3) 25 25 mcg PO DAILY 01/19/20 mcg (1,000 unit) tablet magnesium 250 mg tablet 250 mg PO DAILY 01/19/20 calcipotriene 0.005 % topical cream 1 applic topical DAILY PRN 12/07/20 clobetasol 0.05 % topical ointment 1 applic topical DAILY PRN 12/07/20 fluticasone propionate 50 1 spray intranasal .morning PRN 12/07/20 mcg/actuation nasal allergy symptoms spray,suspension (Allergy Relief (fluticasone)) triamcinolone acetonide 0.1 % 1 applic topical TID PRN rash #80 12/07/20 topical cream grams valacyclovir 500 mg tablet 500 mg PO DAILY #90 tabs 03/12/22 metoprolol succinate 100 mg 100 mg PO DAILY #90 tabs 06/23/22 tablet,extended release 24 hr Current Visit Medications: Current Medications Generic Name Dose Route Start Last Admin Trade Name Calos PRN Reason Stop Dose Admin Hyoscyamine Sulfate 0.125 mg 09/07/22 19:33 Hyoscyamine 0.125 Mg Sl/Oral/Chew SL 10/07/22 19:32 DIRECTED PRN Ringer's Solution 1,000 mls @ 80 mls/hr 09/08/22 06:00 09/08/22 10:10 IV 09/08/22 23:59 80 mls/hr INFUSION CISCO Administration IV Miscellaneous Supplies 1 each 09/08/22 06:00 Iv Access IV 09/08/22 23:59 DIRECTED CISCO Ondansetron HCl 4 mg 09/07/22 19:33 Ondansetron 4 Mg/2 Ml Vial IVP 10/07/22 19:32 Q4H PRN PRN Nausea / Vomiting Sodium Chloride 0 ml 09/08/22 06:00 Normal Saline Flush 10 Ml Syr IV 09/08/22 23:59 PRN PRN Sodium Chloride 0 ml 09/08/22 06:00 Normal Saline 10 Ml Vial IJ 09/08/22 23:59 DIRECTED PRN Sterile Water 0 ml 09/08/22 06:00 Water,Injection,Sterile 10 Ml Vial IJ 09/08/22 23:59 DIRECTED PRN PFSH Active Problems Active Problems: Problem Status Onset Code HTN (hypertension) I10 CAS (obstructive sleep apnea) G47.33 Psoriasis L40.9 Genital herpes A60.00 Anxiety F41.9 Swallowing problem R13.10 Hip pain, bilateral M25.551, M25.552 Low back pain M54.50 Screening for colon cancer Z12.11 Fatigue R53.83 Arthralgia M25.50 COVID-19 U07.1 Medical History Medical History (Updated 09/08/22 @ 09:52 by Jolene Nicholas) Closed left radial fracture (01/30/19) Enlarged thyroid 02/2020- Normal thyroid US Hx of low back pain hip pain Migraine Sleep apnea pt. has CPAP Surgical History Surgical History History of colonoscopy Hx of wisdom tooth extraction Tobacco Smoking/Tobacco Use Status: Former Tobacco Use Passive smoking exposure: Yes Second hand exposure: Yes Alcohol Alcohol Intake: current Alcohol intake frequency: holidays/special occasions only Alcohol type: wine Substance Use Substance use: Never Substance use type: does not use Details: alcohol: t-7 one drink Prental History History 1 Para 1 Hx # Term Pregnancies Multiple births Hx # Pregnancies Ectopic pregnancies AB induced Hx Number of Living Children AB spontaneous Vital Signs and Lab Results Vital Signs Most Recent Vital Signs in EMR: Most Recent Vital Signs Temp Pulse Resp BP Pulse Ox 36.3 C L 71 16 126/62 97 09/08/22 09:53 09/08/22 09:53 09/08/22 09:53 09/08/22 09:53 09/08/22 09:53 Lab Results Blood Type / Crossmatch: No Data to Display Complete Blood Count: No Data to Display Complete Metabolic Panel: No Data to Display Liver Function Panel: No Data to Display Coagulation Panel: No Data to Display Cardiac Panel: No Data to Display Arterial Blood Gas: No Data to Display Venous Blood Gas: No Data to Display Pancreas Panel: No Data to Display Thyroid Panel: No Data to Display Infectious Disease: No Data to Display Blood Cultures: No Data to Display Toxicology Panel: No Data to Display Imaging and Studies Imaging and Studies Study information below may be from another EMR and interpreted by another provider. Please see original notes in EMR for more complete details. Carotid Artery Summary:: 02/07/2022: IMPRESSION: No evidence of a hemodynamically significant carotid stenosis Anesthesia Assessment and Plan Anesthesia History Personal History: No History of Anesthesia Complications Family History: No Family History of Anesthesia Complications Exercise Tolerance Exercise Tolerance: Metabolic Equivalents>4 Pertinent Negatives Pertinent Negatives: No Symptoms of GERD, No Major Cardiovascular Symptoms or Complaints and No Major Pulmonary Symptoms or Complaints Cardiac & Pulmonary Exam Cardiac Exam: Normal S1/S2 Heart Sounds Pulmonary Exam: Clear Bilateral Breath Sounds Implantable Cardiac Device Does patient have a Pacemaker or an ICD?: No Airway Exam Known Difficult Airway: No Mallampati Class: 2 Mouth Opening: Normal (> 3cm) Thyromental Distance: Greater than 3 cm Neck Range of Motion: Full ROM Neck Circumference: Normal Teeth Condition: Normal Dentition ASA Classification ASA Score: ASA 2 Emergency Case?: No NPO Status NPO Status: NPO Clears >2 hours, Solids >8 hours Anesthesia Plan Resuscitation Status: Full Code Anesthesia Technique: General Anesthesia Airway Planned: Natural Airway Monitors Used: Standard Monitors
[2022-09-08 10:48] VITALS: BMI 28.0
[2022-09-08 11:37] VITALS: BP 99/72; PULSE 66; RESP 16; TEMP 36.4; O2SAT 96
[2022-09-08 12:07] VITALS: BP 113/61; PULSE 61; RESP 16; TEMP 36.1; O2SAT 97
--- NOTE | 2022-09-08 13:47 | W.ANESPOSTOP ---
Postoperative Evaluation Date, Time and Location Date Performed: 09/08/22 Time Performed: 13:47 Patient Location: Day Surgery Unit Vital Signs Most Recent Imported Vital Signs: Most Recent Vital Signs Temp Pulse Resp BP Pulse Ox 36.1 C L 61 16 113/61 97 09/08/22 12:07 09/08/22 12:07 09/08/22 12:07 09/08/22 12:07 09/08/22 12:07 Pain Score Most Recent Pain Score: Most Recent Pain Score Pain Level 0 09/08/22 11:37 Assessment Mental Status: Awake (Alert & Oriented to Patient Baseline) Airway and Respiratory Function: Patent airway with normal (patient baseline) respiratory exam Cardiovascular Function: Hemodynamically Stable Hydration Status: Adequately Hydrated Nausea & Vomiting: No Nausea or Vomiting Pain: Pt. Denies Any Pain Peripheral Nerve Block: Patient did not receive a nerve block
== END 2022-09-08 12:20 | disposition home or self-care (01) ==
PROVIDERS: PCP Nurse Practitioner Family; Visit Provider Surgery
PROC: 0DJD8ZZ Inspection of Lower Intestinal Tract, Via Natural or Artificial Opening Endoscopic (ICD-10-PCS; CPT 45378; principal; 2022-09-08 10:30)
DX: Z12.11 Encounter for screening for malignant neoplasm of colon (principal)
CPT/HCPCS: 45378; J2001

== ENCOUNTER 2023-01-22 02:29 | Outpatient (CLI) | payer BC, SELFPAY ==
[2023-01-22 09:29] LABS: ESR 2 mm/hr (0-30)
[2023-01-22 11:11] LABS: ALT 39 U/L (14-59); AST 31 U/L (15-37); Albumin 4.2 g/dL (3.4-5.0); Alkaline Phosphatase 85 U/L (46-116); Anion Gap 8.1 mmol/L (3-11); BUN 15 mg/dL (7-18); Bilirubin, Total 0.6 mg/dL (0.2-1.0); CO2 30.9 mmol/L (21.0-32.0); CREATININE 0.8 mg/dL (0.55-1.02); Calcium 9.5 mg/dL (8.5-10.1); Calculated LDL 74 mg/dL (<100); Chloride 103 mmol/L (98-107); Cholesterol 142 mg/dL (<200); Glucose 117 mg/dL (74-106); HDL Cholesterol 45 mg/dL (40-60); Potassium 3.7 mmol/L (3.5-5.1); Sodium 142 mmol/L (136-145); Total Protein 8.2 g/dL (6.4-8.2); Triglyceride 119 mg/dL (<150)
[2023-01-22 15:19] LABS: C-Reactive Protein 1.41 mg/dL (0.0-0.3)
[2023-01-23 08:15] LABS: Hepatitis C Ab w Rflx HCV PCR Negative (Negative)
[2023-01-23 09:01] LABS: HIV-1/2 Ag & Ab Screen Negative (Negative)
== END 2023-01-22 02:30 | disposition home or self-care (01) ==
LOC: LBO 02:29
PROVIDERS: PCP Nurse Practitioner Family; Visit Provider Nurse Practitioner Family
DX: Z11.59 Encounter for screening for other viral diseases (principal); Z11.4 Encounter for screening for human immunodeficiency virus [HIV]; L40.9 Psoriasis, unspecified; M25.50 Pain in unspecified joint; R53.83 Other fatigue; Z13.220 Encounter for screening for lipoid disorders
CPT/HCPCS: 36415; 80053; 80061; 85652; 86803; 87389; 86140

== ENCOUNTER 2023-01-23 07:51 | Outpatient (CLI) | payer BC, SELFPAY ==
--- NOTE | 2023-01-23 07:45 | RT.EKG_ITS ---
APPROVED REPORT Exam: Resting ECG Reason for Exam: HTN Patient Location: O HR:59 bpm ECG Measurements Heart Rate 59 AXIS FL [id number] P [id number] QRSd 83 QRS 0 QT 402 T 1 QTc 399 Conclusion Sinus rhythm Normal Electrocardiogram
== END 2023-01-23 07:52 | disposition home or self-care (01) ==
LOC: DI.CARD 07:51
PROVIDERS: PCP Nurse Practitioner Family; Visit Provider Internal Medicine Cardiovascular Disease
DX: I10 Essential (primary) hypertension (principal)
CPT/HCPCS: 93010

== ENCOUNTER → 2023-02-09 00:44 | Outpatient (CLI) | payer BC, SELFPAY ==
--- NOTE | 2023-02-09 06:15 | ETT_ITS ---
APPROVED REPORT Exam: Exercise Treadmill Patient Location: Out-Patient Room/Bed: Stress Nurse: Delia Moe RN Ordering Provider:KAVITHA PRETTY, Contact Number: BMI: 29.95 Baseline Rhythm: Sinus Rhythm Comment: Last dose metoprolol was on 02/05/23 Indications: Dyspnea on Exertion Medical History Medical History: HTN, CAS, Anxiety, low back pain, hip pain, arthralgia Cardiac Medications: Magnesium, Metoprolol Succinate Allergies: Penicillins Cardiac Risk Factors: +family history, HTN Previous Cardiac Procedures: None Pretest Chest Pain Characteristics: None Exercise History: Indeterminate Physical Disabilities: None Lung Sounds: Clear, bilaterally Heart Sounds: S1/S2 Stress Test Details Test: Exercise stress testing was performed using a Francis protocol. Rest Stress HR Resting HR Supine: 84 bpm Max Heart Rate (APMHR): 159 bpm Resting HR Standin bpm Target HR (85% APMHR): 135 bpm Max HR Achieved: 167 bpm % of APMHR: 105 Recovery HR: 94 bpm HR response to stress: Normal HR response to stress BP Resting BP Supine: 168/98 mmHg Resting BP Standin/100 mmHg Max BP: 198/74 mmHg Recovery BP: 160/90 mmHg BP response to stress: Normal blood pressure response to stress. ECG Resting ECG: Sinus Rhythm Ectopy: None Stress ECG: Sinus Tachycardia ST Change: Upsloping ST depression Lead(s): II, III, aVF, V5,V6 Stage: Stage 2 / Early recovery Maximum ST Deviation: 0.5-1 mm Arrhythmia: None Recovery ECG: Sinus Rhythm Recovery ST Change: Upsloping ST depression Lead(s): II, III, aVF, V5,V6 Recovery ST Deviation: 0.5-1 mm Recovery Arrhythmia: None Comment: ST changes minimal and resolved within 2-3 minutes of recovery Clinical Reason for Termination: Max HR achieved Stress Symptoms: shortness of breath (moderate), Chest sensation Exercise duration: 4 min37 sec Highest Stage Reached: Stage 2: 2.5 mph at 12% grade. Exercise capacity: 6.58 METs Angina Score: None Ramos Treadmill Score: 2.5 Rate Pressure Product: [id number] Stress ECG Conclusion 1. Resting electrocardiogram was within normal limits 2. Patient exercised on the Francis protocol and completed workload of 6.58 METS 3. Normal heart rate and blood pressure response to exercise. Peak heart rate achieved was greater t feng 100% of predicted for age 4. There was no electrocardiographic evidence of myocardial ischemia 5. There were no dysrhythmias Ramos Treadmill Score is 2.5 which is Moderate risk. Stress Test Summary STAGE Time (mins) Speed (mph) Grade (%) HR BP SpO2 SYMPTOMS METS Supine 84 168/98 98% Standing 92 166/100 1 3 1.7 10 135 170/84 Mild shortness of breath 4.5 2 6 2.5 12 158 moderate shortness of breath, sensation in chest, below breasts 7 1 min recovery 146 198/74 97% 3 min recovery 110 192/88 6 min recovery 94 160/90 98% Patient reported a sensation in her mid sternal area below the breasts at peak exercise. Was vague wi th description, possibly a flutter she described as she stated she could feel her heart racing. Endor sed moderate shortness of breath at peak heart rate. All symptoms resolved within minutes of recovery /rest.
== END ==
PROVIDERS: PCP Nurse Practitioner Family; Visit Provider Internal Medicine Cardiovascular Disease
DX: I10 Essential (primary) hypertension; R06.09 Other forms of dyspnea
CPT/HCPCS: 93017

== ENCOUNTER → 2023-02-09 00:56 | Outpatient (CLI) | payer BC, SELFPAY ==
--- NOTE | 2023-02-09 06:15 | DI.MAMMO_ITS ---
Exam(s) MAMMO SCREENING EXAM: MAMMO SCREENING CLINICAL HISTORY: screening,z12.39 TECHNIQUE: Bilateral full field digital CC and MLO mammographic images were obtained with 3D tomosyn thesis and utilizing computer aided detection (CAD). COMPARISON: Available for comparison. FINDINGS: Masses/Architectural Distortion: There is a stable nodule in the upper outer quadrant of the left jaden ast. No suspicious nodules or areas of architectural distortion are present. Microcalcifications: No suspicious pleomorphic-type are seen. Skin Thickening/Nipple Retraction: None. IMPRESSION: 1. No significant interval change with no specific features of malignancy noted. 2. Unless there is more urgent need, screening mammography is recommended, as per [employer] guidelines. BI-RADS Category 2 - Benign Findings Breast Density - Category B - Scattered areas of fibroglandular density Breast density category C or D implies that the patient has dense breast tissue. Dense breast tissue is very common and is not abnormal but dense breast tissue can make it harder to find cancer on a ma mmogram. Also, dense breast tissue may increase their breast cancer risk. This information about the result of the mammogram report was provided to the patient to raise their awareness. Use this report when you speak with the patient about their risks for breast cancer, which includes their family hist ory. At that time, you may recommend for more screening tests (Ultrasound or MRI) as they might be us eful based on their risk. A negative radiographic report should not delay biopsy if a dominant or clinically suspicious mass is present. Up to ten percent of cancers are not identified on mammography. A negative report may reinforce clinical impression. Adenosis and dense breasts may obscure an underlying neoplasm. False positive reports average 6 to 10%. Patient will receive a letter notifying them of these results.
== END ==
PROVIDERS: PCP Nurse Practitioner Family; Visit Provider Nurse Practitioner Family
DX: Z12.31 Encounter for screening mammogram for malignant neoplasm of breast (principal)
CPT/HCPCS: 77063; 77067

== ENCOUNTER 2024-02-19 00:21 | Outpatient (CLI) | payer BC, SELFPAY ==
--- NOTE | 2024-02-19 16:08 | DI.MAMMO_ITS ---
Exam(s) MAMMO SCREENING EXAM: MAMMO SCREENING CLINICAL HISTORY: screening, Z12.39. TECHNIQUE: Bilateral full field digital CC and MLO mammographic images were obtained with 3D tomosyn thesis and utilizing computer aided detection (CAD). COMPARISON: Prior mammograms were reviewed. FINDINGS: There has been no significant change in the appearance and distribution of the fibroglandular tissue. There are no CAD designations. There are no new spiculated masses nor malignant appearing microcalcification groups. Small nodule in the lateral aspect of the left breast is unchanged from prior mammograms. There is no significant architectural distortion nor skin thickening-retraction. IMPRESSION: No radiographic evidence of malignancy. Stable benign-appearing findings. BI-RADS Category 2 - Benign Findings Breast Density - Category B - Scattered areas of fibroglandular density Breast density Category C or D implies that the patient has dense breast tissue. Dense breast tissue can make it harder to find cancer on a mammogram. Dense breast tissue is also associated with an incr eased risk of breast cancer. This information about the result of the mammogram report was provided to the patient to raise their awareness. Use this report when you speak with the patient about their risks for breast cancer, which includes their family history. At that time, you may recommend additional screening tests (Ultrasoun d or MRI) as these tests may add significant information. A negative radiographic report should not delay biopsy if a dominant or clinically suspicious mass is present. Up to ten percent of cancers are not identified on mammography. A negative report may reinforce clinical impression. Adenosis and dense breasts may obscure an underlying neoplasm. False positive reports average 6 to 10%. Patient will receive a letter notifying them of these results.
== END 2024-02-19 00:41 ==
PROVIDERS: PCP Nurse Practitioner Family; Visit Provider Nurse Practitioner Family
DX: Z12.31 Encounter for screening mammogram for malignant neoplasm of breast (principal)
CPT/HCPCS: 77063; 77067

== ENCOUNTER 2024-08-19 01:22 | Outpatient (CLI) | payer BC, SELFPAY ==
--- NOTE | 2024-09-04 14:29 | W.PFT ---
Date of service: 08/19/24 Time of Service: 15:23 Pulmonary Function Test Result Indications: Dyspnea on exertion Interpretation Spirometry: No airflow limitation. Lung Volumes: Normal lung volumes Diffusion Capacity: Normal diffusion Airway Pressure: Normal airways resistance Impression Normal pulmonary function testing Clinical Correlation therefore is recommended.
== END 2024-08-19 01:23 | disposition home or self-care (01) ==
LOC: RT 01:22
PROVIDERS: PCP Nurse Practitioner Family; Visit Provider Nurse Practitioner Family
DX: R06.09 Other forms of dyspnea (principal); R53.83 Other fatigue
CPT/HCPCS: 94726; 94729; 94010

== ENCOUNTER 2025-02-17 11:18 | Outpatient (CLI) | payer BC, SELFPAY ==
[2025-02-17 15:08] LABS: ESR 1 mm/hr (0-30)
[2025-02-17 15:11] LABS: HCT 42.5 % (36.0-46.0); HGB 14.2 g/dL (11.2-15.7); MCH 32.8 pg (27.0-33.0); MCHC 33.4 % (32.0-36.0); MCV 98 fL (80-95); MPV 8.7 fL (8.0-11.0); Platelet Count 217 10^3/uL (130-400); RBC 4.33 10^6/uL (3.93-5.22); RDW 11.8 % (11.7-14.6); RDW-SD 42.7 fL; WBC 5.70 10^3/uL (4.4-10.8)
[2025-02-17 15:21] LABS: Hemoglobin A1C 6.0 % (<5.7)
[2025-02-17 16:17] LABS: Iron 110 ug/dL (50-170)
[2025-02-17 17:49] LABS: TSH (W/Ref FT4) 2.44 uIU/mL (0.55-4.78); Vitamin D 25 Total 40 ng/mL (30-100)
[2025-02-17 17:50] LABS: C-Reactive Protein < 0.50 mg/dL (<=0.50)
[2025-02-17 17:51] LABS: ALT 53 U/L (10-49); AST 41 U/L (<34); Albumin 4.9 g/dL (3.2-5.0); Alkaline Phosphatase 87 U/L (46-116); Anion Gap 8.1 mmol/L (3-11); BUN 18 mg/dL (9-23); Bilirubin, Total 0.60 mg/dL (0.2-1.2); CO2 30.9 mmol/L (20.0-31.0); Calcium 9.8 mg/dL (8.3-10.6); Chloride 104 mmol/L (98-107); Cholesterol 192 mg/dL (<200); Glucose 91 mg/dL (74-106); HDL Cholesterol 49 mg/dL (>40); Potassium 3.8 mmol/L (3.5-5.1); Sodium 143 mmol/L (136-145); Total Protein 7.7 g/dL (5.7-8.2)
[2025-02-17 20:05] LABS: Vitamin B12 654 pg/mL (211-911)
[2025-02-18 11:56] LABS: Lab Add On Test DONE
[2025-02-18 11:56] LABS: Lab Add On Test DONE
[2025-02-20 10:07] LABS: Lyme Ab w Rflx to Lyme Confirm Negative (Negative)
[2025-02-20 10:12] LABS: Folate >24.0 ng/mL (See Note)
[2025-02-20 15:10] LABS: B. miyamotoi PCR Negative (Negative); Babesia divergens/MO-1 Negative (Negative); Ehrlichia muris eauclairensis Negative (Negative)
== END 2025-02-17 11:19 | disposition home or self-care (01) ==
LOC: LOS 11:19
PROVIDERS: PCP Nurse Practitioner Family; Visit Provider Nurse Practitioner Family
DX: L40.9 Psoriasis, unspecified (principal); R53.83 Other fatigue; Z13.220 Encounter for screening for lipoid disorders; L40.50 Arthropathic psoriasis, unspecified; R73.9 Hyperglycemia, unspecified; D75.89 Other specified diseases of blood and blood-forming organs
CPT/HCPCS: 36415; 80053; 80061; 82306; 85027; 85652; 86200; 87798; 82607; 82746; 83036; 83540; 84443; 86038; 86140; 86431; 86618